=== PATIENT | female | born 1980 | race Caucasian/White ===

== ENCOUNTER 2025-04-25 09:35 | Emergency (ER) | payer MEDICARE, MEDICAID, SELFPAY ==
--- OUTSIDE RECORDS SUMMARY | 2025-04-24 06:06 | XMS_ITS | Continuity of Care Document ---
Author Organization Formerly [facility] [place] [address] Phone Care Team Providers Care Senior Project Coordinator Name Role Phone HELADIO KWAN MD Primary Care Provider HELADIO KWAN MD Attending Provider [phone] HELADIO KWAN MD Referring Provider Pancho Skaggs MD Emergency Provider Fadi Miller DNP Emergency Provider [phone] Care Teams Patient Care Team Team Status: Active Member Role/Relationship Status Dates HELADIO KWAN MD Primary Care Provider Active Visit Care Team Team Status: Active Member Role/Relationship Status Dates HELADIO KWAN MD Primary Care Provider Active Start: April 21, 2025 HELADIO KWAN MD Attending Provider Active St art: April 21, 2025 HELADIO KWAN MD Referring Provider Active St art: April 21, 2025 Visit Care Team Team Status: Inactive Member Role/Relationship Status Dates HELADIO KWAN MD Primary Care Provider Active Start: April 24, 2025 End: April 24, 2025 Pancho Skaggs MD Emergency Provider Active Start: April 24, 2025 End: April 24, 2025 Patient Care Team Team Status: Inactive Member Role/Relationship Status Dates HELADIO KWAN MD Primary Care Provider Active Start: April 24, 2025 End: April 24, 2025 Fadi Miller DNP Emergency Provider Active Sta rt: April 24, 2025 End: April 24, 2025 Chief Complaint and Reason for Visit Chief Complaint Admit Date MS April 21, 2025 10:06am BACK PX, LEG PX April 24, 2025 7:12am CAN'T KEEP FOOD DOWN April 24, 2025 11:39am Allergies, Adverse Reactions, Alerts Allergen Type Severity Reaction Last Updated Verified Status diphenhydramine HCl * Allergy Moderate Respiratory De cember 2024 7:39am Yes Active Iodinated Contrast Media Allergy Mild Itching April 24, 2025 7:39am Yes Active morphine Adverse Reaction Unknown Itching April 24, 2025 7:39am Yes Active Social History Smoking Status Status Start Date End Date Date of Observa tion Never smoked tobacco (finding) January 23, 2024 11:42pm Observation Status Observation Response Date of Response Suicide Risk Category Screening complete Marcello r 2024 7:36am Suicide Risk Category Screening complete Marcello r 2024 11:48am Living arrangement At home April 11:35pm Living Situation With family December 30 10:04pm ETOH Use Liquor June 25, 018 10:37am Psychiatric Depression January 23, 2024 10:42pm Anxiety January 23, 2024 10:42pm Social History Notes undefined December 10:04pm Legal Sex Female Sex Assigned At Female 1980 Status Not April 24, 2025 Not April 24, 025 Family History Relationship Condition Age at Onset Recorded Date/T sameera Unknown Family History Comment/Other? Unknown December 31, 2023 10:04pm Neurological History ?Multiple sclerosis Unknown January 23, 2024 10:42pm Respiratory?None Unknown January 032023 10:42pm Endocrine/Autoimmune ?Type 2 diabetes Unknown January 23, 2024 10:42pm Problems Active Problems Problem Diagnosis/Recorded Date Onset Date Stat us Abdominal pain October 07, 2013 9:00pm Unknown Acti ve Cough October 07, 2013 9:00pm Unknown Active Palpitations September 27, 2013 4:34pm Unknown Active Generalized aches and pains August 21, 2014 1:12am Un known Active Vomiting November 01, 2014 11:06pm Unknown Activ e Nausea vomiting and diarrhea May 19, 2019 3:49pm Unknown Active 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 April 16, 2020 11:31pm Unknown Active Acute flank pain July 26, 2019 11:06am Unknown Active SIRS due to non-infectious p rocess without acute organ dysfunction December 31, 2023 9:56pm Unknown Act george UTI (urinary tract infection) May 19, 2019 3:49p m Unknown Active Narcotic withdrawal June 28, 2018 5:20pm Unknown Active Major depression December 31, 2023 9:56pm Unknown Active Contusion, abdominal wall February 28, 2017 3:52am Un known Active Diabetes April 16, 2020 8:37pm Unknown A ctive Chronic pain April 16, 2020 11:31pm Unknown Active Abnormal liver function tests November 16, 2018 11:26pm Unknown Active DM2 (diabetes mellitus, type 2) December 31, 2023 9:56 pm Unknown Active Back pain January 06, 2018 10:18am Unknown Active Edema June 12, 2019 7:07pm Unknown Ac tive Rash and nonspecific skin eruption May 22, 2019 3:09pm Unknown Active Headache March 22, 2014 10:31pm Unknown Active Hyperglycemia November 11, 2016 10:54pm Unknown Act george Otitis media August 24, 2017 1:19am Unknown Acti ve Acute pain November 11, 2016 5:16pm Unknown Activ e Psoriasis June 09, 2019 3:00pm Unknown Ac tive Sinusitis August 24, 2017 1:19am Unknown Acti ve Benzodiazepine withdrawal December 31, 2023 9:08pm Unk nown Active Back pain affecting pregnanc y in first trimester September 10, 2014 8:38pm Unknown Active Allergic reaction February 22, 2014 2:39pm Unknown Active Biliary obstruction December 02, 2018 12:32am Unknown Active Left sided abdominal pain March 15, 2020 5:53pm U nknown Active Generalized pain September 01, 2018 1:46am Unknown Act george Multiple sclerosis November 11, 2016 5:16pm Unknown Active Left-sided weakness February 20, 2014 9:18pm Unknown Active Elevated lactic acid level July 26, 2019 11:06am Un known Active Abdominal pain February 28, 2017 3:52am Unknown Active Abdominal pain April 19, 2020 3:51pm Unknown Active Multiple sclerosis exacerbation February 20, 2014 9:1 8pm Unknown Active Pain crisis April 10, 2018 1:10pm Unknown Ac tive Pain crisis April 24, 2025 1:13pm Unknown A ctive Pneumonia June 12, 2019 7:07pm Unknown Ac tive Constipation February 28, 2017 3:52am Unknown Ac tive Vomiting August 21, 2014 1:12am Unknown Acti ve Contusion of hip, left January 30, 2018 5:26am Unk nown Active Dehydration July 27, 2017 6:18pm Unknown Acti ve Inactive/Resolved Problems Problem Diagnosis/Recorded Date Onset Date Stat us Pain of lower extremity June 08, 2020 3:30pm Unkn own Resolved Generalized muscle ache January 22, 2024 3:57am Un known Resolved Total body pain August 31, 2022 9:51pm Unknown R esolved Tachypnea July 05, 2020 2:28am Unknown Resol dieudonne Lightheadedness July 05, 2020 2:28am Unknown Re solved Cough July 05, 2020 2:28am Unknown Resol dieudonne Leukocytosis July 04, 2020 6:57pm Unknown Resol dieudonne Numbness and tingling of rig ht side of face May 29, 2023 5:23pm Unknown Resolved Tachycardia July 05, 2020 2:28am Unknown Resol dieudonne Pain, dental August 31, 2022 9:51pm Unknown Reso lved Tremor May 29, 2023 5:23pm Unknown Re solved Right arm numbness May 29, 2023 5:23pm Unknown Resolved History of multiple sclerosis May 29, 2023 5:23p m Unknown Resolved Medications Medication Status Dose Units Route Directions Qty Days Refills S tart Date Stop Date End Date Reason(s) Instructions Adherence Sertraline (Zoloft) 50 MG tablet Discont inued 200 TAB PO DAILY September 07, 2012 11:00p m Decem damari 2019 9:16a m Furosemide 20 MG tablet Discont inued 20 MG PO TWICE A DAY as needed for diuresis September 07, 2012 11:00p m November 01, 2014 8:19p m Alprazolam (Xanax) 0.5 MG tablet Discont inued 0.5 MG PO DAILY as needed for Anxiety September 07, 2012 11:00p m November 01, 2014 8:19p m Methadone 5 MG tablet Discont inued 10 MG PO Q8H September 07, 2012 11:00p m November 01, 2014 8:19p m Oxycodone 5 MG tablet Discont inued 10 MG PO FOUR TIMES DAILY as needed for Pain September 07, 2012 11:00p m October 04, 2015 4:07p m Ibuprofen 600 MG tablet Discont inued 600 MG PO Q6H as needed for Pain 30 0 September 07, 2012 11:00p m Augus t 2012 3:44a m Ondansetron 4 MG tablet,disi ntegrating Discont inued 4 MG PO Q6H as needed for Pain 10 0 September 07, 2012 11:00p m Septe mber 2012 7:41p m Doxycycline Hyclate 100 MG tablet Discont inued 100 MG PO TWICE A DAY 28 0 September 19, 2012 11:00p m Augus t 2012 3:44a m Glatiramer (Copaxone) 20 MG syringe Discont inued 20 MG SQ DAILY December 18, 2012 11:00p m Febru deb 2013 2:53p m Sennosides (Senokot) 8.6 MG tablet Discont inued 8.6 MG PO TWICE A DAY as needed for Constipatio n Octobe r 2012 11:00p m Octob er 2013 7:31p m Lipase-Prot ease-Amylas e (Pork) (Pancrelipa se 5,000 Dr Capsule) 1 EACH capsule,del ayed release(DR/ EC) Discont inued 6 CAP PO THREE TIMES A DAY Octobe r 2012 11:00p m August 26, 2013 7:59p m Natalizumab (Tysabri) 20 MG/1 ML solution Discont inued 300 MG IV ONCE August 25, 2013 11:00p m Augus t 2013 1:59p m Promethazin e 25 MG tablet Discont inued 25 MG PO Q6H as needed for Nausea / Vomiting 10 0 August 26, 2013 11:00p m Novem damari 2013 3:55p m Natalizumab (Tysabri) 20 MG/ML solution Discont inued Octobe r 2013 11:00p m November 01, 2014 8:19p m Diazepam 5 MG tablet Discont inued 2 TAB PO THREE TIMES A DAY as needed for Anxiety 2 0 Febobe r 2013 10:01p m Novem damari 2013 3:55p m 30 min prior to MRI Prednisone 20 MG tablet Discont inued 40 MG PO DAILY 5 0 Febobe r 2013 11:00p m Novem admari 2013 3:55p m 2X 20 MG TABS. QS Famotidine 20 MG tablet Discont inued 20 MG PO TWICE A DAY 10 0 Octobe r 2013 11:00p m Novem damari 2013 3:55p m Oxycodone-A cetaminophe n (Percocet 5-325 Mg Tablet) 1 EACH tablet Discont inued 1 EACH PO THREE TIMES A DAY as needed for Pain 15 0 September 10, 2014 8:36pm November 01, 2014 8:19p m Promethazin e 25 MG tablet Discont inued 25 MG PO Q6H as needed for Nausea / Vomiting 15 0 September 10, 2014 8:36pm November 01, 2014 8:19p m Pantoprazol e (Protonix) [address] for susp in packet Discont inued 40 MG DAILY October 02, 2015 11:00p m November 11, 2016 5:00p m Gabapentin 300 MG capsule Discont inued 300 MG PO THREE TIMES A DAY 30 0 October 02, 2015 11:00p m October 09, 2015 3:22p m Metoclopram vidhya Hcl 10 MG tablet Discont inued 10 MG PO Q6H as needed for Nausea / Vomiting 30 0 October 03, 2015 2:54pm November 11, 2016 5:00p m Oxycodone 5 MG tablet Discont inued 10 MG PO Q6H as needed for Pain 15 0 October 03, 2015 2:54pm Dece damari 2019 9:17a m Methadone 5 MG tablet Discont inued 10 MG TWICE A DAY October 03, 2015 11:00p m November 11, 2016 5:00p m Ondansetron 4 MG tablet,disi ntegrating Discont inued 4 MG TL Q6H as needed for Nausea / Vomiting 14 0 Octobe r 2016 11:00p m Febru deb 2017 11:09 am Lorazepam 0.5 MG tablet Active 0.5 MG PO Q6H as needed for Anxiety Februa ry 2017 12:00a m Unknown Methadone 10 MG tablet Discont inued 10 MG PO FOUR TIMES DAILY July 26, 2017 11:00p m Augus t 2023 7:55p m Ondansetron 4 MG tablet,disi ntegrating Discont inued 4 MG TL Q6H as needed for Nausea / Vomiting 14 0 August 24, 2017 1:30am July 05, 2020 2:20a m Amoxicillin -Pot Clavulanate 1 TAB tablet Discont inued 1 EACH PO Q12H 13 0 August 24, 2017 1:30am Augus t 2017 3:16p m Acetaminoph en 650 MG suppository Discont inued 650 MG PO Q6H as needed for Pain December 08, 2017 11:00p m Decem damari 2019 12:00 pm Cholecalcif cathleen (Vitamin D3) 500 UNIT/5 ML liquid Discont inued 2000 UNIT PO DAILY December 08, 2017 11:00p m Octob er 2017 11:12 am Methocarbam ol 500 MG tablet Discont inued 500 MG PO Q6H as needed for Spasms 25 0 2017 11:00p m Octob er 2017 11:12 am Vitamin D Cream Discont inued 1 EACH TOP DAILY Octobe r 2017 11:00p m Decem damari 2019 9:16a m Vitamin E Oil Discont inued 1 EACH TOP DAILY Octobe r 2017 11:00p m Dece damari 2019 9:16a m Methocarbam ol 500 MG tablet Discont inued 500 MG PO Q6H as needed for muscle spasm 20 0 damari 2017 5:24am Octob er 2017 11:12 am Promethazin e 25 MG tablet Discont inued 25 MG PO Q6H as needed for Nausea / Vomiting 10 0 2018 12:00a m August 19, 2019 1:38p m Lorazepam (Ativan) 1 MG tablet Discont inued 1 MG PO THREE TIMES A DAY as needed for Anxiety 10 0 2018 12:00a m August 19, 2019 1:37p m Promethazin e 25 MG tablet Discont inued 25 - 50 MG PO Q6H as needed for Nausea / Vomiting 10 0 November 16, 2018 11:00p m August 19, 2019 1:38p m 1-2 Tabs Hydroxyzine Pamoate 25 MG capsule Discont inued 25 - 50 MG PO Q6H as needed for Itching 20 0 December 02, 2018 12:31a m Decem damari 2019 12:01 pm Ondansetron 4 MG tablet,disi ntegrating Discont inued 4 MG TL Q6H as needed for Nausea / Vomiting 10 0 December 01, 2018 11:00p m Decem damari 2019 9:16a m Triamcinolo ne Acetonide 15 APPLIC/15 GM ointment Discont inued 1 GM TOP TWICE A DAY 3 0 Dece er 2018 12:00a m Decem damari 2019 9:16a m Promethazin e (Promethega n) 25 MG suppository Discont inued 25 MG NH Q6H as needed for Nausea / Vomiting 10 0 2019 12:00a m August 19, 2019 1:37p m Ondansetron 4 MG tablet,disi ntegrating Discont inued 4 MG TL Q6H as needed for Nausea / Vomiting 15 0 2019 12:00a m Decem damari 2019 9:16a m Hydroxyzine Hcl 25 MG tablet Discont inued 25 MG PO Q6H as needed for Itching 20 0 2019 3:47pm Decem 2019 9:17a m Sulfamethox azole-Trime thoprim 1 TAB tablet Discont inued 1 EACH PO TWICE A DAY 14 0 2019 12:00a m August 19, 2019 1:38p m Cephalexin (Keflex) 500 MG capsule Discont inued 500 MG PO Q6H 28 0 2019 12:00a m August 19, 2019 1:36p m Doxepin 10 MG capsule Discont inued 10 MG PO THREE TIMES A DAY as needed for Itching 14 0 2019 12:00a m August 19, 2019 1:36p m Triamcinolo ne Acetonide 15 APPLIC/15 GM ointment Discont inued 1 GM TOP TWICE A DAY 3 0 2019 12:00a m Decem damari 2019 12:00 pm Oxycodone-A cetaminophe n (Percocet 5-325 Mg Tablet) 1 EACH tablet Discont inued 1 - 2 EACH PO Q6H as needed for pain 7 0 2019 12:00a m Decem damari 2019 9:17a m Azithromyci n 250 MG tablet Discont inued 1 TAB PO DAILY 4 0 2019 12:00a m August 19, 2019 1:36p m Start tomorrow, first dose given in the emergency department. Albuterol Sulfate (Ventolin Hfa) 200 PUFFS/18 GM HFA aerosol inhaler Discont inued 1 - 2 PUFFS INH EVERY 4 HOURS as needed for Shortness Of Air/Wheezin g 1 0 ry 2019 12:00a m August 19, 2019 1:36p m Potassium Chloride 10 MEQ tablet extended release Discont inued 10 MEQ PO DAILY 3 0 2019 12:00a m August 19, 2019 1:37p m take anytime you take furosemide Furosemide 20 MG tablet Discont inued 20 MG PO DAILY as needed for edema 3 0 2019 7:28pm August 19, 2019 1:36p m Dexamethaso ne 4 MG tablet Discont inued 4 MG PO DAILY 7 0 July 25, 2019 11:00p m [facility] damari 2019 12:01 pm Oxycodone 5 MG tablet Discont inued 10 MG PO Q6H 14 0 November 12, 2019 [facility] damari 2019 9:44p m pain Ondansetron 4 MG tablet,disi ntegrating Discont inued 4 MG TL Q6H as needed for Nausea / Vomiting 10 0 Novemb er 2019 12:00a m Dece damari 2019 9:16a m Metformin 500 MG tablet Active 1000 MG PO TWICE A DAY Dece er 2019 12:00a m Unknown Sertraline 50 MG tablet Active 200 MG PO DAILY Decemb er 2019 12:00a m Unknown Risankizuma b-Rzaa (Skyrizi) 150 MG/1.66 ML syringe kit Active 150 MG IJ .[id number] Dece er 2019 12:00a m Unknown Oxycodone 5 MG tablet Active 10 MG PO Q4H as needed for Pain Dece er 2019 9:44pm Unknown Insulin Glargine (Lantus Solostar U-100 Insulin) 100 UNIT/ML insulin pen Active 16 UNIT SQ EVERY EVENING Dece er 2019 12:00a m Unknown Potassium Chloride 10 MEQ tablet extended release Discont inued 10 MEQ PO DAILY 3 0 2020 12:00a m July 05, 2020 2:20a m Furosemide 20 MG tablet Discont inued 20 MG PO DAILY 3 0 2020 12:00a m July 05, 2020 2:20a m Azithromyci n 250 MG tablet Discont inued 250 MG PO DAILY BEFORE A MEAL 6 5 0 July 05, 2020 12:00a m Decem damari 2020 1:39p m 500 MG ON DAY 1, THEN 250 MG DAILY X 4 DAYS FOR A TOTAL OF 5 DAYS Hydromorpho ne 2 MG tablet Discont inued 2 MG PO Q4H as needed for chest pain 14 0 October 03, 2021 ry 2022 2:22p m Azithromyci n 250 MG tablet Discont inued 250 MG PO DAILY 4 0 October 02, 2021 11:00p m Janua ry 2022 2:22p m Amoxicillin -Pot Clavulanate 1 TAB tablet Discont inued 1 TAB PO Q12H 20 0 October 02, 2021 11:00p m Janua ry 2022 2:22p m Celecoxib (Celebrex) 200 MG capsule Discont inued 200 MG PO August 30, 2022 11:00p m Janua ry 2023 7:44p m Hydromorpho ne (Dilaudid) 4 MG tablet Discont inued 4 MG PO Q4H as needed for pain 15 0 y 2023us t 2023 7:55p m Methadone 10 MG tablet Active 1 TAB PO As Directed Augu st 2023 11:00p m METHADONE 10MG TABS #35 TAKE 1 TABLET BY MOUTH FIVE TIMES A DAY. -FILLED AND PICKED UP AT [place], [place] Unknown Ondansetron Hcl 4 mg tablet Active 4 MG PO Q8H as needed for nausea and vomiting 10 0 Decemb er 2024 12:00a m Chronic pain Other chronic pain Unknown Oxycodone 10 mg tablet Active 10 MG PO Q4H as needed for pain 20 0 Decemb er 2024 Chronic pain Other chronic pain Unknown Immunizations Immunization Event Date Not Given Reason Dose Number [employer] Lot Number Reason(s) Given Vaccine Information Statement (VIS) Detail Administration Location Diptheria-Tet anus-Pertussi s Ped 1980 Diptheria-Tet anus-Pertussi s Ped Decemb er 1980 Diptheria-Tet anus-Pertussi s Ped October 08, 1983 Diptheria-Tet anus-Pertussi s Ped December 30, 1984 Diptheria-Tet anus-Pertussi s Ped September 08, 1989 Measles-Mumps -Rubella October 15, 1983 Measles-Mumps -Rubella October 20, 1994 Measles-Mumps -Rubella Novemb er , 2014 Measles-Mumps -Rubella Novemb er , 2015 Tetanus-Dipth eria-Pertussi s Octobe r 2014 Tetanus-Dipth eria-Pertussi s Octobe r 2015 Relevant Diagnostic Tests and/or Laboratory Data Laboratory Results Test Collection Date/Time Result Date/Time Result Interpretation Reference Range Result Comment Performing Site White Blood Count February 07, 2025 8:05am February 07, 2025 8:24am 6.3 10*3/uL 4.8-10.8 [facility] [id number] [address] [facility] [id number] White Blood Count April 24, 2025 1:08pm April 24, 2025 1:21pm 12.4 10*3/uL above high threshold 4.8-10.8 [facility] [id number] [address] [facility] [address] Red Blood Count February 07, 2025 8:05am February 07, 2025 8:24am 4.20 10*6/uL 4.20-5.40 [facility] [id number] [address] [facility] [address] Red Blood Count April 24, 2025 1:08pm April 24, 2025 1:21pm 4.60 10*6/uL 4.20-5.40 [facility] [id number] [address] [facility] [address] Hemoglobi n February 07, 2025 8:05am February 07, 2025 8:24am 10.6 g/dL below low threshold 12.0-16.0 [facility] [id number] [address] [facility] [address] Hemoglobi n April 24, 2025 1:08pm April 24, 2025 1:21pm 10.8 g/dL below low threshold 12.0-16.0 [facility] [id number] [address] [facility] [address] Hematocri t February 07, 2025 8:05am February 07, 2025 8:24am 33.0 % below low threshold 37.0-47.0 [facility] [id number] [address] [facility] [address] Hematocri t April 24, 2025 1:08pm April 24, 2025 1:21pm 35.0 % below low threshold 37.0-47.0 [facility] [id number] [address] [facility] [address] Mean Corpuscul ar Volume February 07, 2025 8:05am February 07, 2025 8:24am 78.6 fL below low threshold 81.0-99.0 [facility] [id number] [address] [facility] [address] Mean Corpuscul ar Volume April 24, 2025 1:08pm April 24, 2025 1:21pm 76.1 fL below low threshold 81.0-99.0 [facility] [id number] [address] [facility] [address] Mean Corpuscul ar Hemoglobi n February 07, 2025 8:05am February 07, 2025 8:24am 25.2 pg below low threshold 27.0-31.0 [facility] [id number] [address] [facility] [address] Mean Corpuscul ar Hemoglobi n April 24, 2025 1:08pm April 24, 2025 1:21pm 23.5 pg below low threshold 27.0-31.0 [facility] [id number] [address] [facility] [address] Mean Corpuscul ar Hemoglobi n Concent February 07, 2025 8:05am February 07, 2025 8:24am 32.1 g/dL 32.0-36.0 [facility] [id number] [address] [facility] [address] Mean Corpuscul ar Hemoglobi n Concent April 24, 2025 1:08pm April 24, 2025 1:21pm 30.9 g/dL below low threshold 32.0-36.0 [facility] [id number] [address] [facility] [address] Red Cell Distribut ion Width February 07, 2025 8:05am February 07, 2025 8:24am 14.9 % 12.0-15.0 [facility] [id number] [address] [facility] [address] Red Cell Distribut ion Width April 24, 2025 1:08pm April 24, 2025 1:21pm 16.7 % above high threshold 12.0-15.0 [facility] [id number] [address] [facility] [address] Platelet Count February 07, 2025 8:05am February 07, 2025 8:24am 232 10*3/uL 130-450 MA[facility] [id number] [address] [facility] [address] Platelet Count April 24, 2025 1:08pm April 24, 2025 1:21pm 304 10*3/uL 130-450 MA[facility] [id number] [address] [facility] [address] Mean Platelet Volume February 07, 2025 8:05am February 07, 2025 8:24am 9.1 fL 7.9-10.8 MA[facility] [id number] [address] [facility] [address] Mean Platelet Volume April 24, 2025 1:08pm April 24, 2025 1:21pm 9.2 fL 7.9-10.8 [facility] [id number] [address] [facility] [address] Neutrophi ls # (Auto) February 07, 2025 8:05am February 07, 2025 8:24am 3.9 10*3/uL 1.5-6.6 [facility] [id number] [address] [facility] [address] Neutrophi ls # (Auto) April 24, 2025 1:08pm April 24, 2025 1:21pm 8.0 10*3/uL above high threshold 1.5-6.6 [facility] [id number] [address] [facility] [address] Lymphocyt es # (Auto) February 07, 2025 8:05am February 07, 2025 8:24am 1.8 10*3/uL 1.5-3.5 [facility] [id number] [address] [facility] [address] Lymphocyt es # (Auto) April 24, 2025 1:08pm April 24, 2025 1:21pm 3.5 10*3/uL 1.5-3.5 [facility] [id number] [address] [facility] [address] Monocytes # (Auto) February 07, 2025 8:05am February 07, 2025 8:24am 0.4 10*3/uL 0.0-1.0 [facility] [id number] [address] [facility] [address] Monocytes # (Auto) April 24, 2025 1:08pm April 24, 2025 1:21pm 0.8 10*3/uL 0.0-1.0 [facility] [id number] [address] [facility] [address] Eosinophi ls # (Auto) February 07, 2025 8:05am February 07, 2025 8:24am 0.1 10*3/uL 0.0-0.7 MA[facility] [id number] [address] [facility] [address] Eosinophi ls # (Auto) April 24, 2025 1:08pm April 24, 2025 1:21pm 0.0 10*3/uL 0.0-0.7 MA[facility] [id number] [address] [facility] [address] Basophils # (Auto) February 07, 2025 8:05am February 07, 2025 8:24am 0.0 10*3/uL 0.0-0.1 MA[facility] [id number] [address] [facility] [address] Basophils # (Auto) April 24, 2025 1:08pm April 24, 2025 1:21pm 0.1 10*3/uL 0.0-0.1 MA[facility] [id number] [address] [facility] [address] Nucleated Red Blood Cells % February 07, 2025 8:05am February 07, 2025 8:24am 0.0 /100{WBC } MAIN [facility] [id number] [address] [facility] [address] Nucleated Red Blood Cells % April 24, 2025 1:08pm April 24, 2025 1:21pm 0.2 /100{WBC } MAIN [facility] [id number] [address] [facility] [address] Nucleated RBC Absolute Count (auto) February 07, 2025 8:05am February 07, 2025 8:24am 0.00 10*3/uL MA[facility] [id number] [address] [facility] [address] Nucleated RBC Absolute Count (auto) April 24, 2025 1:08pm April 24, 2025 1:21pm 0.03 10*3/uL MA[facility] [id number] [address] [facility] [address] Sodium Level February 07, 2025 8:05am February 07, 2025 8:35am 137 mmol/L 135-145 MA[facility] [id number] [address] [facility] [address] Sodium Level April 24, 2025 1:08pm April 24, 2025 1:31pm 137 mmol/L 135-145 MA[facility] [id number] [address] [facility] [address] Potassium Level February 07, 2025 8:05am February 07, 2025 8:35am 4.0 mmol/L 3.5-4.5 As of November 2022 testing method has changed, this may include reference ranges. MAIN [facility] [id number] [address] [facility] [address] Potassium Level April 24, 2025 1:08pm April 24, 2025 1:31pm 3.7 mmol/L 3.5-4.5 As of November 2022 testing method has changed, this may include reference ranges. MAIN LAB [id number] [address] [facility] [address] Chloride Level February 07, 2025 8:05am February 07, 2025 8:35am 105 mmol/L 101-111 As of November 2022 testing method has changed, this may include reference ranges. MAIN LAB [id number] [address] [facility] [address] Chloride Level April 24, 2025 1:08pm April 24, 2025 1:31pm 102 mmol/L 101-111 As of November 2022 testing method has changed, this may include reference ranges. MAIN [facility] [id number] [address] [facility] [address] Carbon Dioxide Level February 07, 2025 8:05am February 07, 2025 8:35am 27 mmol/L 21-32 As of November 2022 testing method has changed, this may include reference ranges. MAIN [facility] [id number] [address] [facility] [address] Carbon Dioxide Level April 24, 2025 1:08pm April 24, 2025 1:31pm 26 mmol/L 21-32 As of November 2022 testing method has changed, this may include reference ranges. MAIN LAB [id number] [address] [facility] [address] Anion Gap February 07, 2025 8:05am February 07, 2025 8:35am 5.0 below low threshold 6-13 MAIN [facility] [id number] [address] [facility] [address] Anion Gap April 24, 2025 1:08pm April 24, 2025 1:31pm 9.0 6-13 MAIN LAB [id number] [address] [facility] [address] Blood Urea Nitrogen February 07, 2025 8:05am February 07, 2025 8:35am 15 mg/dL 6-20 As of November 2022 testing method has changed, this may include reference ranges. MAIN LAB [id number] [address] [facility] [address] Blood Urea Nitrogen April 24, 2025 1:08pm April 24, 2025 1:31pm 13 mg/dL 6-20 As of November 2022 testing method has changed, this may include reference ranges. MAIN LAB [id number] [address] [facility] [address] Creatinin e February 07, 2025 8:05am February 07, 2025 8:35am 0.7 mg/dL 0.6-1.3 As of November 2022 testing method has changed, this may include reference ranges. MAIN LAB [id number] [address] [facility] [address] Creatinin e April 24, 2025 1:08pm April 24, 2025 1:31pm 0.6 mg/dL 0.6-1.3 As of November 2022 testing method has changed, this may include reference ranges. MAIN LAB [id number] [address] [facility] [address] Estimated GFR (MDRD) February 07, 2025 8:05am February 07, 2025 8:35am 92 >89 The IDMS-tracea ble MDRD Study Equation has been validated extensively in and populations between the ages of 18 and 70 with impaired kidney function (eGFR < 60 mL/min/1.73 m2) and has shown good performance for patients with all common causes of kidney disease. Although this equation has not been validated for patients older than 70, an MDRD-derive d eGFR may still be a useful tool for providers caring for patients older than 70.Referenc es: http://www. [facility]. ov/lab-eval uation/gfr/ creatinine- standardiza tion, last updated July 2011. MAIN LAB [id number] [address] [facility] [address] Estimated GFR (MDRD) April 24, 2025 1:08pm April 24, 2025 1:31pm 110 >89 The IDTN-tracea ble MDRD Study Equation has been validated extensively in and populations between the ages of 18 and 70 with impaired kidney function (eGFR < 60 mL/min/1.73 m2) and has shown good performance for patients with all common causes of kidney disease. Although this equation has not been validated for patients older than 70, an MDRD-derive d eGFR may still be a useful tool for providers caring for patients older than 70.Referenc es: http://www. n[facility]dep[facility]. ov/lab-eval uation/gfr/ creatinine- standardiza tion, last updated July 2011. MAIN LAB [id number] [address] [facility] [address] Glucose Level February 07, 2025 8:05am February 07, 2025 8:35am 117 mg/dL above high threshold 74-104 As of November 2022 testing method has changed, this may include reference ranges. MAIN LAB [id number] [address] [facility] [address] Glucose Level April 24, 2025 1:08pm April 24, 2025 1:31pm 149 mg/dL above high threshold 74-104 As of November 2022 testing method has changed, this may include reference ranges. MAIN LAB [id number] [address] [facility] [address] Calcium Level February 07, 2025 8:05am February 07, 2025 8:35am 8.9 mg/dL 8.5-10.3 As of November 2022 testing method has changed, this may include reference ranges. MAIN LAB [id number] [address] [facility] [address] Calcium Level April 24, 2025 1:08pm April 24, 2025 1:31pm 9.3 mg/dL 8.5-10.3 As of November 2022 testing method has changed, this may include reference ranges. MAIN LAB [id number] [address] [facility] [address] Total Bilirubin February 07, 2025 8:05am February 07, 2025 8:35am 0.7 mg/dL 0.2-1.0 As of November 2022 testing method has changed, this may include reference ranges. MAIN LAB [id number] [address] [facility] [address] Total Bilirubin April 24, 2025 1:08pm April 24, 2025 1:31pm 1.2 mg/dL above high threshold 0.2-1.0 As of November 2022 testing method has changed, this may include reference ranges. MAIN LAB [id number] [address] [facility] [address] Aspartate Amino Transf (AST/SGOT ) February 07, 2025 8:05am February 07, 2025 8:35am 15 [iU]/L 10-42 As of November 2022 testing method has changed, this may include reference ranges. MAIN LAB [id number] [address] [facility] [address] Aspartate Amino Transf (AST/SGOT ) April 24, 2025 1:08pm April 24, 2025 1:31pm 12 [iU]/L 10-42 As of November 2022 testing method has changed, this may include reference ranges. MAIN LAB [id number] [address] [facility] [address] Alanine Aminotran sferase (ALT/SGPT ) February 07, 2025 8:05am February 07, 2025 8:35am 11 [iU]/L 10-60 As of November 2022 testing method has changed, this may include reference ranges. MAIN LAB [id number] [address] [facility] [address] Alanine Aminotran sferase (ALT/SGPT ) April 24, 2025 1:08pm April 24, 2025 1:31pm 11 [iU]/L 10-60 As of November 2022 testing method has changed, this may include reference ranges. MAIN LAB [id number] [address] [facility] [address] Alkaline Phosphata se February 07, 2025 8:05am February 07, 2025 8:35am 64 [iU]/L 42-121 As of November 2022 testing method has changed, this may include reference ranges. MAIN LAB [id number] [address] [facility] [address] Alkaline Phosphata se April 24, 2025 1:08pm April 24, 2025 1:31pm 82 [iU]/L 42-121 As of November 2022 testing method has changed, this may include reference ranges. MAIN LAB [id number] [address] [facility] [address] Total Protein February 07, 2025 8:05am February 07, 2025 8:35am 7.3 g/dL 6.4-8.9 As of November 2022 testing method has changed, this may include reference ranges. MAIN LAB [id number] [address] [facility] [address] Total Protein April 24, 2025 1:08pm April 24, 2025 1:31pm 8.0 g/dL 6.4-8.9 As of November 2022 testing method has changed, this may include reference ranges. MAIN LAB [id number] [address] [facility] [address] Albumin February 07, 2025 8:05am February 07, 2025 8:35am 4.2 g/dL 3.2-5.5 As of November 2022 testing method has changed, this may include reference ranges. MAIN LAB [id number] [address] [facility] [address] Albumin April 24, 2025 1:08pm April 24, 2025 1:31pm 4.5 g/dL 3.2-5.5 As of November 2022 testing method has changed, this may include reference ranges. MAIN LAB [id number] [address] [facility] [address] Globulin February 07, 2025 8:05am February 07, 2025 8:35am 3.1 g/dL 2.1-4.2 MAIN LAB [id number] [address] [facility] [address] Globulin April 24, 2025 1:08pm April 24, 2025 1:31pm 3.5 g/dL 2.1-4.2 MAIN LAB [id number] [address] [facility] [address] Albumin/G lobulin Ratio February 07, 2025 8:05am February 07, 2025 8:35am 1.4 1.0-2.2 MAIN LAB [id number] [address] [facility] [address] Albumin/G lobulin Ratio April 24, 2025 1:08pm April 24, 2025 1:31pm 1.3 1.0-2.2 MAIN LAB [id number] [address] [facility] [address] Lipase April 24, 2025 1:08pm April 24, 2025 1:54pm < 10 [iU]/L below low threshold 11-82 As of November 2022 testing method has changed, this may include reference ranges. MAIN LAB [id number] [address] [facility] [address] Miscellan eous Test February 07, 2025 8:05am February 13, 2025 8:09am COMMENT . Test Ordered: [id number] ROGERS Virus DNA,PCR (Whole Blood)ROGERS Virus DNA,PCR (Whole Blood) Negative BN Reference Range: NegativeNo JCV DNA detectedThi s test was developed and its performance characteris ticsdetermi christopher by [facility]. It has not been cleared or approvedby the Food and Drug Administrat ion. The FDA hasdetermin ed that such clearance or approval is notnecessar y.Performed at: [facility] [id number] b Director: Denise Mora MD, Phone: [phone] erformed at: [address] [id number] b Director: Gt Vu MD, Phone: [phone] [facility] Vital Signs Vital Reading Result Reference Range Collection Date/Time Height 65 [in_i] March 07 024 10:58am Weight 78.70 kg March 24, 2025 9:22am Body Temperature 36.6 Teresa 36.5-37.9 April 212024 10:11am Heart Rate 91 /min 60-100 April 21, 2025 10:11am Respiratory rate 16 /min 12-24 April 212024 10:11am Oxygen saturation by Pulse oximetry 100 % 92-100 April 21, 2025 10:11am BP Systolic 146 mm[Hg] 90-130 April 21, 2025 10:11am BP Diastolic 93 mm[Hg] 60-90 April 21, 2025 10:11am BMI (Body Mass Index) 29.3 kg/m2 Sept2023 12:49am Height 65 [in_i] April 24, 2025 7:36am Weight 76.65 kg April 24, 2025 7:36am Body Temperature 36.6 Teresa 36.5-37.9 April 242024 7:57am Heart Rate 88 /min 60-100 April 24, 2025 7:57am Respiratory rate 18 /min 12-April 242024 7:57am Oxygen saturation by Pulse oximetry 98 % 92-100 April 24, 2025 7:57am BP Systolic 146 mm[Hg] 90-130 April 24, 2025 7:57am BP Diastolic 88 mm[Hg] 60-90 April 24, 2025 7:57am BMI (Body Mass Index) 28.1 kg/m2 [facility] 2024 7:36am Height 65 [in_i] April 24, 2025 11:48am Weight 75.29 kg April 24, 2025 11:48am Body Temperature 36 Teresa 36.5-37.9 April 242024 11:48am Heart Rate 74 /min 60-100 April 24, 2025 1:40pm Respiratory rate 20 /min -April 242024 1:40pm Oxygen saturation by Pulse oximetry 98 % 92-100 April 24, 2025 1:40pm BP Systolic 159 mm[Hg] 90-130 April 24, 2025 1:40pm BP Diastolic 92 mm[Hg] 60-90 April 24, 2025 1:40pm BMI (Body Mass Index) 27.6 kg/m2 [facility] 2024 11:48am Advance Directives Advance Directive Response Recorded Date/ Time Advance Directives on file? No 2023 11:10pm Advance Directives No March 8:21pm Advance Directives Information Provided No April 07, 2022 2:56pm Living Will No April 02, 2 014 8:21pm Power of Patient Assistant No April 02, 2014 8:21pm POLST Status Full Code January 23, 2024 10:42pm Advance Directives On File No 2013 8:21pm Insurance Providers Guarantor MARIA ALEJANDRA SCHMID Address [address] [facility] [address] Contact Info. Home Phone: Coverage Status Update:2024 Payer Group Member ID Coverage Type Subscriber Relationship to Subscriber Effective Date Expiration Date Deleted 1500 Insurances [employer]IP [employer]/QMB [id number] null MARIA ALEJANDRA SCHMID Id: [id number] Self Deleted Clinic Insur [id number] null MARIA ALEJANDRA SCHMID Id: [id number] Self Medicaid Id: [id number] null MARIA ALEJANDRA SCHMID Id: [id number] [address] [facility] [address] Home Phone: Email: DECLINED Self 2022 MEDICAID AMBULANCE DUAL COMPLETE Id: [id number] jacque SCHMID Id: [id number] [address] [facility] [address] Home Phone: Email: DECLINED Self Encounters Encounter Location(s) Arrival/Admit Date Discharge/Departure Date Discharge/Departure Disposition Provider(s) Registered Recurring -MAC Infusion April 21, 2025 10:06am Heladio Kwan Departed Emergency -Emergency Department April 24, 2025 7:12am April 24, 2025 7:58am Discharged to home care or self care (routine discharge) Departed Emergency -Emergency Department April 24, 2025 11:39am April 24, 2025 1:45pm Discharged to home care or self care (routine discharge) Functional Status Observation Response Date Recorded Activity Walks occasionally January 02, 2024 6:55am Mental Status Observation Response Date Recorded Neurological WDL Yes April 24, 2025 7:39am Neurological WDL No April 24, 2025 12:36pm Oriented To Person April 24 025 12:36pm Place April 24 12:36pm Time April 24 12:36pm Cognitive/Mental Status Assessments Plan of Treatment Future Tests Future scheduled test information is unavailable Pending Tests Test Name Ordered Date Scheduled Date CBC - COMP BLD CT W/AUTO DIFF March 07, 2024 11:02am CBC - COMP BLD CT W/AUTO DIFF March 07, 2024 11:02am CBC - COMP BLD CT W/AUTO DIFF March 07, 2024 11:02am CBC - COMP BLD CT W/AUTO DIFF March 07, 2024 11:02am CBC - COMP BLD CT W/AUTO DIFF April 10, 2025 1:42pm 7 Days COMPREHENSIVE METABOLIC PANEL March 07, 2024 11:02am COMPREHENSIVE METABOLIC PANEL March 07, 2024 11:02am COMPREHENSIVE METABOLIC PANEL March 07, 2024 11:02am COMPREHENSIVE METABOLIC PANEL March 07, 2024 11:02am COMPREHENSIVE METABOLIC PANEL April 10, 2025 1:42pm 7 Days Future Visits Future appointment information is unavailable Future Procedures Procedure Name Ordered Date Scheduled Date MISC LAB ORDER March 07, 2024 11:02am MISC LAB ORDER March 07, 2024 11:02am MISC LAB ORDER March 07, 2024 11:02am MISC LAB ORDER April 10, 2025 1:42pm 7 Days Future Medications Future medication information is unavailable Patient Instructions Instruction Admit Date ED Chronic Pain April 24, 2025 7:12am Managing Chronic Pain April 24 11:39am Hospital Discharge Instructions Additional Instructions I have spoke with the pharmacist and unfortunately at this point in time you are unable to give you a medication refill due to the fact that you just had a refill earlier In April With 220 pills. We have given you some IV pain medication here in the emergency department to help with your pain in the meantime but I would encourage you to Follow-up with your primary care provider about this conundrum that you are in.
[2025-04-25 10:02] VITALS: BP 127/82; PULSE 107; RESP 14; TEMP 37; O2SAT 97; BMI 27.8
[2025-04-25 11:19] VITALS: BP 128/78; PULSE 107; RESP 20; O2SAT 99
--- NOTE | 2025-04-25 11:59 | ED.BACK ---
HPI - Back Pain/Injury <Demian Boyer PA-C - Last Filed: 04/25/25 14:23> General Chief Complaint: Back Pain/Injury Stated Complaint: Bad MS flareup Time Seen by Provider: 04/25/25 11:15 Source: patient History of Present Illness HPI Narrative: 44-year-old female with past medical history multiple sclerosis, type 2 diabetes presents to the ED with all-over pain from the progressive multiple sclerosis. Patient has run out of pain medications for the last 4 days. Patient usually takes 20 mg of oxycodone every 4 hours as needed. Patient states that her care was terminated at her PCP's office, since she missed 2 appointments. PCP's name is Dr. Campbell in [place]. No fever, chills, chest pain, shortness of breath. No new trauma. Patient has several lesions along her spine and in the brain. Patient gets a infusion of Tysabri at the [facility] in [place]. Last infusion was last week. However this infusion was delayed. Patient endorses nausea. Related Data Home Medications ?Medication ?Instructions ?Recorded ?Confirmed Vitamins (PRENAVITE) 1 tab PO QDAY #0 tabs 02/26/16 acetaminophen 500 mg tablet 500 mg PO Q4HP PRN ##0 02/26/16 (Tylenol Extra Strength) Previous Rx's ?Medication ?Instructions ?Recorded cephalexin 500 mg capsule (Keflex) 500 mg PO BID 3 days #0 caps 02/26/16 methocarbamol 750 mg tablet 750 mg PO QIDP PRN #40 tabs 08/05/16 (Robaxin-750) Allergies Allergy/AdvReac Type Severity Reaction Status Date / Time morphine (MORPHINE) Allergy Severe n/v Verified 04/25/25 10:02 ,difficulty breathing diphenhydramine (From Allergy Intermediate anxious Verified 04/25/25 10:02 BENADRYL) Review of Systems <Demian Boyer PA-C - Last Filed: 04/25/25 14:23> Constitutional Constitutional: Denies chills, Denies fatigue, Denies fever(s), Denies frequent falls, Denies lethargy and Denies weakness Comments: All-over pain Eyes Eyes: Denies change in vision, Denies eye discharge, Denies irritation and Denies loss of vision ENT Ears, Nose, Mouth, and Throat: Denies change in voice, Denies dizziness, Denies neck pain, Denies sore throat and Denies throat swelling Cardiovascular Cardiovascular: Denies chest pain, Denies irregular heart rhythm, Denies lightheadedness, Denies palpitations, Denies dyspnea, Denies dyspnea on exertion and Denies orthopnea Respiratory Respiratory: Denies cough, Denies dyspnea, Denies dyspnea on exertion and Denies wheezing Gastrointestinal Gastrointestinal: Denies abdominal pain, Denies change in bowel habits, Denies diarrhea, Reports nausea and Denies vomiting Musculoskeletal Musculoskeletal: Denies neck pain and Denies numbness Integumentary/Breasts Skin/Breast: Denies pruritus, Denies erythema, Denies rash and Denies wounds Neurologic Neurologic: Denies behavioral changes, Denies confusion, Denies dizziness, Denies frequent falls, Denies loss of vision, Denies numbness and Denies weakness Psychiatric Psychiatric: Denies anxiety, Denies behavioral changes, Denies confusion, Denies depression, Denies homicidal ideation and Denies suicidal ideation Endocrine Endocrine: Denies fatigue, Denies flushing and Denies palpitations Hematologic/Lymphatic Hematologic/Lymphatic: Denies easy bruising Allergic/Immunologic Allergic/Immunologic: Denies urticaria, Denies throat swelling and Denies wheezing Exam <Demian Boyer PA-C - Last Filed: 04/25/25 14:23> Narrative Exam Narrative: Const General:?cooperative, healthy appearing and comfortable [facility] Head:?normal to inspection Ears:?hearing grossly normal bilaterally Nose:?external nose normal Face and sinus:?normal facial exam and sinuses nontender Mouth:?oral mucosae normal Throat:?posterior oropharynx normal Eyes General:?appearance normal, both eyes and all related structures Neck Neck:?normal visual inspection and no lymphadenopathy noted Resp Effort & Inspection:?normal respiratory effort Auscultation:?clear to auscultation bilaterally Cardio Rate:?regular rate Rhythm:?regular rhythm Neuro General:?patient alert, patient awake and patient oriented x3 Initial Vital Signs Initial Vital Signs: Vital Signs Temperature 98.6 F 04/25/25 10:02 Pulse Rate 107 H 04/25/25 10:02 Respiratory Rate 14 04/25/25 10:02 Blood Pressure 127/82 04/25/25 10:02 Pulse Oximetry 97 04/25/25 10:02 Oxygen Delivery Method Room Air 04/25/25 10:02 <Lidia Santoyo DO - Last Filed: 04/26/25 09:55> Initial Vital Signs Initial Vital Signs: Vital Signs Temperature 98.6 F 04/25/25 10:02 Pulse Rate 107 H 04/25/25 10:02 Respiratory Rate 14 04/25/25 10:02 Blood Pressure 127/82 04/25/25 10:02 Pulse Oximetry 97 04/25/25 10:02 Oxygen Delivery Method Room Air 04/25/25 10:02 Course <Demian Boyer PA-C - Last Filed: 04/25/25 14:23> Orders Ordered: Discontinued Medications Hydromorphone HCl (Hydromorphone 1 Mg/Ml Syringe) 1 mg IV NOW ONE Stop: 04/25/25 11:56 Last Admin: 04/25/25 12:14 Dose: 1 mg Documented By: CICI Hydromorphone HCl (Hydromorphone 1 Mg/Ml Syringe) 1 mg IV NOW ONE Stop: 04/25/25 14:16 Last Admin: 04/25/25 14:29 Dose: 1 mg Documented By: CICI Sodium Chloride (Normal Saline 0.9%) 1,000 mls @ 1,000 mls/hr IV BOLUS ONE Stop: 04/25/25 12:54 Last Infusion: 04/25/25 14:01 Dose: Infused Documented By: Admin: 04/25/25 12:14 Dose: 1,000 mls/hr Documented By: CICI Ondansetron HCl (Ondansetron 4 Mg/2 Ml Inj) 4 mg IV NOW ONE Stop: 04/25/25 11:57 Last Admin: 04/25/25 12:14 Dose: 4 mg Documented By: CICI Vital Signs Vital signs: Vital Signs - 8 hr 04/25/25 10:02 04/25/25 11:19 Temperature 98.6 F Pulse Rate 107 H 107 H Respiratory Rate 14 20 Blood Pressure 127/82 128/78 Pulse Oximetry 97 99 Oxygen Delivery Method Room Air Room Air <Lidia Santoyo DO - Last Filed: 04/26/25 09:55> Orders Ordered: Discontinued Medications Hydromorphone HCl (Hydromorphone 1 Mg/Ml Syringe) 1 mg IV NOW ONE Stop: 04/25/25 11:56 Last Admin: 04/25/25 12:14 Dose: 1 mg Documented By: CICI Hydromorphone HCl (Hydromorphone 1 Mg/Ml Syringe) 1 mg IV NOW ONE Stop: 04/25/25 14:16 Last Admin: 04/25/25 14:29 Dose: 1 mg Documented By: CICI Sodium Chloride (Normal Saline 0.9%) 1,000 mls @ 1,000 mls/hr IV BOLUS ONE Stop: 04/25/25 12:54 Last Infusion: 04/25/25 14:01 Dose: Infused Documented By: Admin: 04/25/25 12:14 Dose: 1,000 mls/hr Documented By: CICI Ondansetron HCl (Ondansetron 4 Mg/2 Ml Inj) 4 mg IV NOW ONE Stop: 04/25/25 11:57 Last Admin: 04/25/25 12:14 Dose: 4 mg Documented By: CICI Vital Signs Vital signs: Vital Signs - 8 hr 04/25/25 10:02 04/25/25 11:19 Temperature 98.6 F Pulse Rate 107 H 107 H Respiratory Rate 14 20 Blood Pressure 127/82 128/78 Pulse Oximetry 97 99 Oxygen Delivery Method Room Air Room Air MDM - Back Pain/Injury <Demian Boyer PA-C - Last Filed: 04/25/25 14:23> MDM Narrative Medical decision making narrative: 44-year-old female with past medical history multiple sclerosis, type 2 diabetes presents to the ED with all-over pain from the progressive multiple sclerosis. Patient is stable, without chest pain or shortness of breath. Patient is tachycardic to 107 but vitals otherwise normal. The goal today will be to control pain and nausea, consult with social work to establish a new PCP for the patient. Will reassess. Our elementary school social worker learned that patient had been seen in in the [facility] ED twice yesterday for the same complaint of pain and nausea. We requested records from [facility], learned that they checked patient's medication history and that Diana confirmed that she received 220 pills of oxycodone about 2 weeks ago, which should last her past the new your per her providers prescription instructions. Patient was denied any additional pain medications yesterday at [facility]. Today, patient was given 2 doses of Dilaudid via her port. Our elementary school social worker was able to secure a new PCP for the patient and her 1st appointment will be on 05/18/[address] Marx. Discussed this with patient, explained to patient that we are unable to prescribe anymore narcotic pain medication today. Recommend follow-up with PCP as scheduled. ED return precautions were discussed with patient. She verbalized understanding. Medical records reviewed: Yes Discharge Plan Departure Patient Disposition: Home Clinical Impression: Acute pain Instructions: DI for Back Strain or Sprain Activity Restrictions/Additional Instructions: You were evaluated in the emergency department today for breakthrough pain from multiple sclerosis. You were given 2 doses of Dilaudid for pain relief. You have also been set up with a new PCP Dr. Marx, with your appointment on 05/18/2025. We are unable to fill any prescriptions today for narcotic pain medications, since your records show that you have filled a narcotic pain medication for 220 pills earlier this month. Please follow-up with Dr. Marx as scheduled. Return to the ED if you have chest pain, shortness of breath. Prescriptions: No Action acetaminophen [Tylenol Extra Strength] 500 MG tablet 500 mg PO Q4HP PRNQty: 0 Vitamins (PRENAVITE) 1 tab PO QDAY Qty: 0 cephalexin [Keflex] 500 MG capsule 500 mg PO BID 3 Days Qty: 0 0RF methocarbamol [Robaxin-750] 750 MG tablet 750 mg PO QIDP PRNQty: 40 0RF Referrals: Dung Campbell MD [Family Provider, Internal Medicine] Stand Alone Forms: Patient Portal/API ED Sign-out <Lidia Santoyo, - Last Filed: 04/26/25 09:55> Cosign ED Attending Bridget Attestation: I was immediately available in the department for consultation.
[2025-04-25] MEDS: ONDANSETRON 4 MG/2 ML INJ IV (12:14)
[2025-04-25] MEDS: SODIUM CHLORIDE 0.9% 1,000 ML 1000 ML IV (12:14)
--- NOTE | 2025-04-25 13:38 | CM.SWNOTE ---
ED NURSES AIDE Note Patient is 44 y/o female who presents to ED due to concern for MS flare up and reported pain. Patient went to [facility] ED twice yesterday for similar symptoms. NURSES AIDE receives consult due to concern for patient's need for new PCP, it is reported that patient was terminated from her PCP Dr. Campbell earlier this month. Patient has Medicaid and Medicare insurance. Patient has hx of MS, Type 2 diabetes and other comorbidities. NURSES AIDE enters room to meet with patient and present with patient is patient's mother. Patient presents as A/Ox4. Patient and mother endorse that they are uncertain if patient is terminated from the clinic because patient just saw PCP 3 weeks ago and they report he was unaware of the termination from clinic. Patient states that she missed two appts because her son was in the hospital. Patient endorses she is open to establishing care with new PCP with clinics. NURSES AIDE calls [facility], it is confirmed that patient was terminated from the clinic on 04/06/25, the day after she was seen by Dr. Capmbell. NURSES AIDE calls PCP clinics managed care manager Onna and schedules ED follow up with Dr. Marx for 05/18/25 at 9:45 AM check in. NURSES AIDE provides patient with information confirmation about former provider and about upcoming appt with new PCP and arrival time, she indicates agreement and understanding. Plan: Patient to d/c to home upon medical clearance, patient to f/u with new PCP on 05/08/25. KAITLIN George
[2025-04-25 14:38] VITALS: BP 123/73; PULSE 86; RESP 16; O2SAT 100
== END 2025-04-25 14:40 | disposition home or self-care (01) ==
PROVIDERS: Emergency Provider Student in an Organized Health Care Education/Training Program; Family Provider Internal Medicine; PCP Family Medicine
DX: G35.D Multiple sclerosis, unspecified (principal); M79.10 Myalgia, unspecified site
CPT/HCPCS: 96361; 96374; 96375; 96376; 99283; J1171; J2405; J7030

== ENCOUNTER 2025-04-30 10:57 | Emergency (ER) | payer MEDICARE, MEDICAID, SELFPAY ==
--- OUTSIDE RECORDS SUMMARY | 2025-04-30 01:45 | XMS_ITS | Continuity of Care Document ---
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 Name Role Phone HELADIO KWAN MD Primary Care Provider HELADIO KWAN MD Attending Provider HELADIO KWAN MD Referring Provider [phone] Pancho Skaggs MD Emergency Provider Fadi Miller DNP Emergency Provider Jeffy Campo MD Emergency Provider [phone] Syeda Choudhary MD Emergency Provider [phone] Haresh Duncan MD Emergency Provider [phone] Care Teams Patient Care Team Team Status: [...] April 24, 2025 End: April 24, 2025 Visit Care Team Team Status: Inactive Member Role/Relationship Status Dates HELADIO KWAN MD Primary Care Provider Active Start: April 24, 2025 End: April 24, 2025 Fadi Miller DNP Emergency Provider Active Sta rt: April 24, 2025 End: April 24, 2025 Visit Care Team Team Status: Inactive Member Role/Relationship Status Dates HELADIO KWAN MD Primary Care Provider Active Start: April 26, 2025 End: April 26, 2025 Jeffy Campo MD Emergency Provider Active Start: April 26, 2025 End: April 26, 2025 Visit Care Team Team Status: Inactive Member Role/Relationship Status Dates HELADIO KWAN MD Primary Care Provider Active Start: April 27, 2025 End: April 27, 2025 Syeda Choudhary MD Emergency Provider Active S tart: April 27, 2025 End: April 27, 2025 Visit Care Team Team Status: Inactive Member Role/Relationship Status Dates HELADIO KWAN MD Primary Care Provider Active Start: April 29, 2025 End: April 29, 2025 Haresh Duncan MD Emergency Provider Active Start: April 29, 2025 End: April 29, 2025 Patient Care Team Team Status: Inactive Member Role/Relationship Status Dates HELADIO KWAN MD Primary Care Provider Active Start: April 30, 2025 End: April 30, 2025 Pancho Skaggs MD Emergency Provider Active Start: April 30, 2025 End: April 30, 2025 Chief Complaint and Reason for Visit Chief Complaint Admit Date MS April 21, 2025 10:06am BACK PX, LEG PX April 24, 2025 7:12am CAN'T KEEP FOOD DOWN April 24, 2025 11:39am ABD PX/V April 26, 2025 1:26am BODY PX April 27, 2025 7:24am LOWER BACK PX, URINATION PX April 10:05am WHOLE BODY PX, N/D April 30, 2025 8:47am Allergies, Adverse Reactions, Alerts Allergen Type Severity Reaction Last Updated Verified Status diphenhydramine HCl * Allergy Moderate Respiratory De cember 2024 9:01am Yes Active Iodinated Contrast Media Allergy Mild Itching April 30, 2025 9:01am Yes Active morphine Adverse Reaction Unknown Itching April 30, 2025 9:01am Yes Active Social History Smoking Status Status Start Date End Date Date of Observa tion Never smoked tobacco (finding) January 23, 2024 11:42pm Observation Status Observation Response Date of Response Suicide Risk Category Screening complete Decembe r 2024 7:36am Suicide Risk Category Screening complete Decembe r 2024 11:48am Suicide Risk Category Screening complete Decembe r 2024 4:51am Suicide Risk Category Screening complete Decembe r 2024 7:27am Suicide Risk Category Screening complete Decembe r 2024 10:10am Suicide Risk Category Screening complete Decembe r 2024 8:58am Living arrangement At home April 11:35pm Living Situation With family December 30 10:04pm ETOH Use Liquor June 25, 018 10:37am ETOH Use None April 29, 2 025 10:16am Psychiatric Depression January 23, 2024 10:42pm Anxiety January 23, 2024 10:42pm Social History Notes undefined December 10:04pm Legal Sex Female Sex Assigned At Female 1980 Status Not April 30, 2025 Not April 29, 2 025 Not April 27, 2 025 Not April 26, 2 025 Not April 24, 2 025 Not April 24, 2 025 Family History Relationship Condition Age at [...] pain April 16, 2020 11:31pm Unknown Active Chronic pain April 26, 2025 6:41am Unknown A ctive Chronic pain April 27, 2025 7:58am Unknown A ctive Abnormal liver function tests November 16, 2018 [...] November 11, 2016 5:16pm Unknown Activ e Drug-seeking behavior April 30, 2025 9:27am Unkno wn Active Psoriasis June 09, 2019 3:00pm Unknown Ac [...] 29, 2023 5:23pm Unknown Resolved History of pancreatic cancer April 29, 2025 10:15 am Unknown Resolved History of multiple sclerosis May 29, 2023 5:23p m Unknown Resolved Medications Medication Status Dose Units Route Directions Qty Days Refills S tart Date Stop Date End Date Reason(s) Instructions Adherence Sertraline (Zoloft) 50 MG tablet Discont inued 200 TAB PO DAILY September 07, 2012 11:00p m Decem 2019 9:16a m Furosemide 20 MG tablet [...] PO Q6H as needed for Pain 30 September 07, 2012 11:00p m Augus t 2012 3:44a m Ondansetron 4 MG tablet,disi ntegrating Discont inued 4 MG PO Q6H as needed for Pain 10 September 07, 2012 11:00p m Septe mber 2012 7:41p m Doxycycline Hyclate 100 MG tablet Discont inued 100 MG PO TWICE A DAY September 19, 2012 11:00p m Augus t 2012 3:44a m Glatiramer (Copaxone) 20 MG syringe Discont inued 20 MG SQ DAILY December 18, 2012 11:00p m Febru deb 2013 2:53p m Sennosides (Senokot) 8.6 MG tablet Discont inued 8.6 MG PO TWICE A DAY as needed for Constipatio n Febobe r 2012 11:00p m Octob er 2013 [...] as needed for Nausea / Vomiting 10 August 26, 2013 11:00p m Novem damari [...] inued 40 MG PO DAILY 5 0 Octobe r 2013 11:00p m Novem damari 2013 3:55p m 2X 20 MG TABS. [...] Pain 15 0 October 03, 2015 2:54pm [facility] damari 2019 9:17a m Methadone 5 MG [...] Q6H as needed for Spasms 25 0 Septem 2017 11:00p m Octob er 2017 11:12 [...] as needed for muscle spasm 20 0 2017 5:24am Octob er 2017 11:12 am [...] GM TOP TWICE A DAY 3 0 Decemb er 2018 12:00a m Decem damari 2019 9:16a m Promethazin e (Promethega n) 25 MG suppository Discont inued 25 MG [place] Q6H as needed for Nausea / Vomiting [...] A DAY as needed for Itching 14 2019 12:00a m August 19, 2019 1:36p m Triamcinolo ne Acetonide 15 APPLIC/15 GM ointment Discont inued 1 GM TOP TWICE A DAY 3 0 2019 12:00a m Decem damari 2019 12:00 pm Oxycodone-A cetaminophe n (Percocet 5-325 Mg Tablet) 1 EACH tablet Discont inued 1 - 2 EACH PO Q6H as needed for pain 7 0 y 2019 12:00a m Dece damari 2019 9:17a m Azithromyci n 250 MG tablet Discont inued 1 TAB PO DAILY 4 0 2019 12:00a m August 19, 2019 1:36p m Start tomorrow, first dose given in the emergency department. Albuterol Sulfate (Ventolin Hfa) 200 PUFFS/18 GM HFA aerosol inhaler Discont inued 1 - 2 PUFFS INH EVERY 4 HOURS as needed for Shortness Of Air/Wheezin g 1 0 2019 12:00a m August 19, 2019 [...] 7 0 July 25, 2019 11:00p m Dece damari 2019 12:01 pm Oxycodone 5 MG tablet Discont inued 10 MG PO Q6H 14 0 November 12, 2019 Dece damari 2019 9:44p m pain Ondansetron 4 MG tablet,disi ntegrating Discont inued 4 MG TL Q6H as needed for Nausea / Vomiting 10 0 Novemb er 2019 12:00a m Dece damari 2019 9:16a m Metformin 500 MG tablet Active 1000 MG PO TWICE A DAY Dece mb er 2019 12:00a m Unknown Sertraline 50 MG tablet Active 200 MG PO DAILY Decemb er 2019 12:00a m Unknown Risankizuma b-Rzaa (Skyrizi) 150 MG/1.66 ML syringe kit Active 150 MG IJ .[id number] Decemb er 2019 12:00a m Unknown Oxycodone 5 MG tablet Discont inued 10 MG PO Q4H as needed for Pain Decemb er 2019 9:44pm Dece damari 2024 10:14 am Insulin Glargine (Lantus Solostar U-100 Insulin) 100 UNIT/ML insulin pen Active 16 UNIT SQ EVERY EVENING Decemb er 2019 12:00a m Unknown Potassium Chloride [...] 5 0 July 05, 2020 12:00a m Dece 2020 1:39p m 500 MG ON DAY 1, THEN 250 MG DAILY X 4 DAYS FOR A TOTAL OF 5 DAYS Hydromorpho ne 2 MG tablet Discont inued 2 MG PO Q4H as needed for chest pain 14 0 October 03, 20212022 2:22p m Azithromyci n 250 MG tablet Discont inued 250 MG PO DAILY 4 0 October 02, 2021 11:00p m Janua ry 2022 2:22p m Amoxicillin -Pot Clavulanate 1 TAB tablet Discont inued 1 TAB PO Q12H 20 0 October 02, 2021 11:00p m Mayua ry 2022 2:22p m Celecoxib (Celebrex) 200 MG capsule Discont inued 200 MG PO August 30, 2022 11:00p m Janua ry 2023 7:44p m Hydromorpho ne (Dilaudid) 4 MG tablet Discont inued 4 MG PO Q4H as needed for pain 15 0 y 2023 Augus t 2023 7:55p m Methadone 10 MG tablet Discont inued 1 TAB PO As Directed December 31, 2023 11:00p m Dece damari 2024 10:14 am METHADONE 10MG TABS #35 TAKE 1 TABLET BY MOUTH FIVE TIMES A DAY. -FILLED AND PICKED UP AT [place], [place] Ondansetron Hcl 4 mg tablet Active 4 MG PO Q8H as needed for nausea and vomiting 10 0 Decemb er 2024 12:00a m Chronic pain Other chronic pain Unknown Oxycodone 10 mg tablet Discont inued 10 MG PO Q4H as needed for pain 20 0 Decemb er 2024 Decem damari 2024 10:14 am Chronic pain Other chronic pain Ondansetron 4 mg tablet,disi ntegrating Active 4 MG PO Q6H as needed for nausea and vomiting 14 0 Decemb er 2024 12:00a m Vomiting Vomiting, unspecifie d Unknown Immunizations Immunization Event Date Not Given Reason Dose Number Hand Hose Cutter Lot Number Reason(s) Given Vaccine Information Statement (VIS) Detail Administration Location Diptheria-Tet anus-Pertussi s Ped 1980 Diptheria-Tet anus-Pertussi s Ped Decemb er 1982 Diptheria-Tet anus-Pertussi s Ped October 08, 1983 Diptheria-Tet anus-Pertussi s Ped December 30, 1984 Diptheria-Tet anus-Pertussi s Ped September 08, 1989 Measles-Mumps -Rubella October 15, 1983 Measles-Mumps -Rubella October 20, 1994 Measles-Mumps -Rubella Novemb er 2014 Measles-Mumps -Rubella Novemb er 2015 Tetanus-Dipth eria-Pertussi s Octobe r 2014 Tetanus-Dipth eria-Pertussi s Octobe r 2015 Procedures Procedure Date Performed Status CT Abdomen/Pelvis W April 29, 2025 1:57pm c ompleted Relevant Diagnostic Tests and/or Laboratory Data Laboratory Results Test Collection Date/Time Result Date/Time Result Interpretation Reference Range Result Comment Performing Site White Blood Count February 07, 2025 8:05am February 07, 2025 8:24am 6.3 10*3/uL 4.8-10.8 MAIN LAB [id number] [address] [facility] [address] White Blood Count April 24, 2025 1:08pm April 24, 2025 1:21pm 12.4 10*3/uL above high threshold 4.8-10.8 MAIN LAB [id number] [address] [facility] [address] White Blood Count April 29, 2025 10:45am April 29, 2025 10:50am 14.5 10*3/uL above high threshold 4.8-10.8 MAIN LAB [id number] [address] [facility] [address] Red Blood Count February 07, 2025 8:05am February 07, 2025 8:24am 4.20 10*6/uL 4.20-5.40 MAIN LAB [id number] [address] [facility] [address] Red Blood Count April 24, 2025 1:08pm April 24, 2025 1:21pm 4.60 10*6/uL 4.20-5.40 MAIN LAB [id number] [address] [facility] [address] Red Blood Count April 29, 2025 10:45am April 29, 2025 10:50am 4.36 10*6/uL 4.20-5.40 MAIN LAB [id number] [address] [facility] [address] Hemoglob in February 07, 2025 8:05am February 07, 2025 8:24am 10.6 g/dL below low threshold 12.0-16.0 MAIN LAB [id number] [address] [facility] [address] Hemoglob in April 24, 2025 1:08pm April 24, 2025 1:21pm 10.8 g/dL below low threshold 12.0-16.0 MAIN LAB [id number] [address] [facility] [address] Hemoglob in April 29, 2025 10:45am April 29, 2025 10:50am 10.4 g/dL below low threshold 12.0-16.0 MAIN LAB [id number] [address] [facility] [address] Hematocr it February 07, 2025 8:05am February 07, 2025 8:24am 33.0 % below low threshold 37.0-47.0 MAIN LAB [id number] [address] [facility] [address] Hematocr it April 24, 2025 1:08pm April 24, 2025 1:21pm 35.0 % below low threshold 37.0-47.0 MAIN LAB [id number] [address] [facility] [address] Hematocr it April 29, 2025 10:45am April 29, 2025 10:50am 33.8 % below low threshold 37.0-47.0 MAIN LAB [id number] [address] [facility] [address] Mean Corpuscu lar Volume February 07, 2025 8:05am February 07, 2025 8:24am 78.6 fL below low threshold 81.0-99.0 MAIN LAB [id number] [address] [facility] [address] Mean Corpuscu lar Volume April 24, 2025 1:08pm April 24, 2025 1:21pm 76.1 fL below low threshold 81.0-99.0 MAIN LAB [id number] [address] [facility] [address] Mean Corpuscu lar Volume April 29, 2025 10:45am April 29, 2025 10:50am 77.5 fL below low threshold 81.0-99.0 MAIN LAB [id number] [address] [facility] [address] Mean Corpuscu lar Hemoglob in February 07, 2025 8:05am February 07, 2025 8:24am 25.2 pg below low threshold 27.0-31.0 MAIN LAB [id number] [address] [facility] [address] Mean Corpuscu lar Hemoglob in April 24, 2025 1:08pm April 24, 2025 1:21pm 23.5 pg below low threshold 27.0-31.0 MAIN LAB [id number] [address] [facility] [address] Mean Corpuscu lar Hemoglob in April 29, 2025 10:45am April 29, 2025 10:50am 23.9 pg below low threshold 27.0-31.0 MAIN LAB [id number] [address] [facility] [address] Mean Corpuscu lar Hemoglob in Concent February 07, 2025 8:05am February 07, 2025 8:24am 32.1 g/dL 32.0-36.0 MAIN LAB [id number] [address] [facility] [address] Mean Corpuscu lar Hemoglob in Concent April 24, 2025 1:08pm April 24, 2025 1:21pm 30.9 g/dL below low threshold 32.0-36.0 MAIN LAB [id number] [address] [facility] [address] Mean Corpuscu lar Hemoglob in Concent April 29, 2025 10:45am April 29, 2025 10:50am 30.8 g/dL below low threshold 32.0-36.0 MAIN LAB [id number] [address] [facility] [address] Red Cell Distribu tion Width February 07, 2025 8:05am February 07, 2025 8:24am 14.9 % 12.0-15.0 MAIN LAB [id number] [address] [facility] [address] Red Cell Distribu tion Width April 24, 2025 1:08pm April 24, 2025 1:21pm 16.7 % above high threshold 12.0-15.0 MAIN LAB [id number] [address] [facility] [address] Red Cell Distribu tion Width April 29, 2025 10:45am April 29, 2025 10:50am 16.8 % above high threshold 12.0-15.0 MAIN LAB [id number] [address] [facility] [address] Platelet Count February 07, 2025 8:05am February 07, 2025 8:24am 232 10*3/uL 130-450 MAIN LAB [id number] [address] [facility] [address] Platelet Count April 24, 2025 1:08pm April 24, 2025 1:21pm 304 10*3/uL 130-450 MAIN LAB [id number] [address] [facility] [address] Platelet Count April 29, 2025 10:45am April 29, 2025 10:50am 302 10*3/uL 130-450 MAIN LAB [id number] [address] [facility] [address] Mean Platelet Volume February 07, 2025 8:05am February 07, 2025 8:24am 9.1 fL 7.9-10.8 MAIN LAB [id number] [address] [facility] [address] Mean Platelet Volume April 24, 2025 1:08pm April 24, 2025 1:21pm 9.2 fL 7.9-10.8 MAIN LAB [id number] [address] [facility] [address] Mean Platelet Volume April 29, 2025 10:45am April 29, 2025 10:50am 9.0 fL 7.9-10.8 MAIN LAB [id number] [address] [facility] [address] Neutroph ils # (Auto) February 07, 2025 8:05am February 07, 2025 8:24am 3.9 10*3/uL 1.5-6.6 MAIN LAB [id number] [address] [facility] [address] Neutroph ils # (Auto) April 24, 2025 1:08pm April 24, 2025 1:21pm 8.0 10*3/uL above high threshold 1.5-6.6 MAIN LAB [id number] [address] [facility] [address] Neutroph ils # (Auto) April 29, 2025 10:45am April 29, 2025 10:50am 11.1 10*3/uL above high threshold 1.5-6.6 MAIN LAB [id number] [address] [facility] [address] Lymphocy kelsey # (Auto) February 07, 2025 8:05am February 07, 2025 8:24am 1.8 10*3/uL 1.5-3.5 MAIN LAB [id number] [address] [facility] [address] Lymphocy kelsey # (Auto) April 24, 2025 1:08pm April 24, 2025 1:21pm 3.5 10*3/uL 1.5-3.5 MAIN LAB [id number] [address] [facility] [address] Lymphocy kelsey # (Auto) April 29, 2025 10:45am April 29, 2025 10:50am 2.3 10*3/uL 1.5-3.5 MAIN LAB [id number] [address] [facility] [address] Monocyte s # (Auto) February 07, 2025 8:05am February 07, 2025 8:24am 0.4 10*3/uL 0.0-1.0 MAIN LAB [id number] [address] [facility] [address] Monocyte s # (Auto) April 24, 2025 1:08pm April 24, 2025 1:21pm 0.8 10*3/uL 0.0-1.0 MAIN LAB [id number] [address] [facility] [address] Monocyte s # (Auto) April 29, 2025 10:45am April 29, 2025 10:50am 0.8 10*3/uL 0.0-1.0 MAIN LAB [id number] [address] [facility] [address] Eosinoph ils # (Auto) February 07, 2025 8:05am February 07, 2025 8:24am 0.1 10*3/uL 0.0-0.7 MAIN LAB [id number] [address] [facility] [address] Eosinoph ils # (Auto) April 24, 2025 1:08pm April 24, 2025 1:21pm 0.0 10*3/uL 0.0-0.7 MAIN LAB [id number] [address] [facility] [address] Eosinoph ils # (Auto) April 29, 2025 10:45am April 29, 2025 10:50am 0.1 10*3/uL 0.0-0.7 MAIN LAB [id number] [address] [facility] [address] Basophil s # (Auto) February 07, 2025 8:05am February 07, 2025 8:24am 0.0 10*3/uL 0.0-0.1 MAIN LAB [id number] [address] [facility] [address] Basophil s # (Auto) April 24, 2025 1:08pm April 24, 2025 1:21pm 0.1 10*3/uL 0.0-0.1 MAIN LAB [id number] [address] [facility] [address] Basophil s # (Auto) April 29, 2025 10:45am April 29, 2025 10:50am 0.0 10*3/uL 0.0-0.1 MAIN LAB [id number] [address] [facility] [address] Nucleate d Red Blood Cells % February 07, 2025 8:05am February 07, 2025 8:24am 0.0 /100{WBC} MAIN LAB [id number] [address] [facility] [address] Nucleate d Red Blood Cells % April 24, 2025 1:08pm April 24, 2025 1:21pm 0.2 /100{WBC} MAIN LAB [id number] [address] [facility] [address] Nucleate d Red Blood Cells % April 29, 2025 10:45am April 29, 2025 10:50am 0.2 /100{WBC} MAIN LAB [id number] [address] [facility] [address] Nucleate d RBC Absolute Count (auto) February 07, 2025 8:05am February 07, 2025 8:24am 0.00 10*3/uL MAIN LAB [id number] [address] [facility] [address] Nucleate d RBC Absolute Count (auto) April 24, 2025 1:08pm April 24, 2025 1:21pm 0.03 10*3/uL MAIN LAB [id number] [address] [facility] [address] Nucleate d RBC Absolute Count (auto) April 29, 2025 10:45am April 29, 2025 10:50am 0.03 10*3/uL MAIN LAB [id number] [address] [facility] [address] Urine Color April 29, 2025 10:20am April 29, 2025 10:44am YELLOW MAIN LAB [id number] [address] [facility] [address] Urine Clarity April 29, 2025 10:20am April 29, 2025 10:44am CLEAR CLEAR MAIN LAB [id number] [address] [facility] [address] Urine Leukocyt e Esterase April 29, 2025 10:20am April 29, 2025 10:44am NEGATIVE NEGATIVE MAIN LAB [id number] [address] [facility] [address] Urine Nitrite April 29, 2025 10:20am April 29, 2025 10:44am NEGATIVE NEGATIVE MAIN LAB [id number] [address] [facility] [address] Urine Urobilin ogen April 29, 2025 10:20am April 29, 2025 10:44am 0.2 (NORMAL) {EhrlichU} /dL NORMAL MAIN LAB [id number] [address] [facility] [address] Urine Protein April 29, 2025 10:20am April 29, 2025 10:44am NEGATIVE mg/dL NEGATIVE MAIN LAB [id number] [address] [facility] [address] Urine pH April 29, 2025 10:20am April 29, 2025 10:44am 5.5 ph 5.0-7.5 MAIN LAB [id number] [address] [facility] [address] Urine Occult Blood April 29, 2025 10:20am April 29, 2025 10:44am NEGATIVE NEGATIVE MAIN LAB [id number] [address] [facility] [address] Urine Specific [place] April 29, 2025 10:20am April 29, 2025 10:44am <=1.005 1.002-1.03 0 MAIN LAB [id number] [address] [facility] [address] Urine Ketones April 29, 2025 10:20am April 29, 2025 10:44am NEGATIVE mg/dL NEGATIVE MAIN LAB [id number] [address] [facility] [address] Urine Bilirubi n April 29, 2025 10:20am April 29, 2025 10:44am NEGATIVE NEGATIVE Bilirubin can be influenced by color interferen ce. Please correlate positive results with clinical presentati on MAIN LAB [id number] [address] [facility] [address] Urine Glucose (UA) April 29, 2025 10:20am April 29, 2025 10:44am NEGATIVE mg/dL NEGATIVE MAIN LAB [id number] [address] [facility] [address] Urine Microsco pic Review April 29, 2025 10:20am April 29, 2025 10:44am NOT INDICATED MAIN LAB [id number] [address] [facility] [address] Urine Culture Comments April 29, 2025 10:20am April 29, 2025 10:44am NOT INDICATED MAIN LAB [id number] [address] [facility] [address] Urine HCG, Qualitat george April 29, 2025 10:20am April 29, 2025 10:44am NEGATIVE INTERPRETI VE INFORMATIO N Urine hCG:Non-pr egnant females: NegativePr egnant females: PositiveIn some cases the level of hCG may be below the sensitivit y of the test. Additional ly, a very dilute urine specimen, may not contain representa tive levels of hCG. If is still suspected, follow up testing on a first morning urine specimen or serum hCG testing is recommende d. MAIN LAB [id number] [address] [facility] [address] Sodium Level February 07, 2025 8:05am February 07, 2025 8:35am 137 mmol/L 135-145 MAIN LAB [id number] [address] [facility] [address] Sodium Level April 24, 2025 1:08pm April 24, 2025 1:31pm 137 mmol/L 135-145 MAIN LAB [id number] [address] [facility] [address] Sodium Level April 29, 2025 10:45am April 29, 2025 11:18am 137 mmol/L 135-145 MAIN LAB [id number] [address] [facility] [address] Potass[place] m Level February 07, 2025 8:05am February 07, 2025 8:35am 4.0 mmol/L 3.5-4.5 As of November 2022 testing method has changed, this may include reference ranges. MAIN LAB [id number] [address] [facility] [address] [place] m Level April 24, 2025 1:08pm April 24, 2025 1:31pm 3.7 mmol/L 3.5-4.5 As of November 2022 testing method has changed, this may include reference ranges. MAIN LAB [id number] [address] [facility] [address] [place] m Level April 29, 2025 10:45am April 29, 2025 11:18am 3.5 mmol/L 3.5-4.5 As of November 2022 testing method has changed, this may include reference ranges. MAIN LAB [id number] [address] [facility] [address] Chloride Level February 07, 2025 8:05am February 07, 2025 8:35am 105 mmol/L 101-111 As of November 2022 testing method has changed, this may include reference ranges. MAIN LAB [id number] [address] [facility] [address] Chloride Level April 24, 2025 1:08pm April 24, 2025 1:31pm 102 mmol/L 101-111 As of November 2022 testing method has changed, this may include reference ranges. MAIN LAB [id number] [address] [facility] [address] Chloride Level April 29, 2025 10:45am April 29, 2025 11:18am 104 mmol/L 101-111 As of November 2022 testing method has changed, this may include reference ranges. MAIN LAB [id number] [address] [facility] [address] Carbon Dioxide Level February 07, 2025 8:05am February 07, 2025 8:35am 27 mmol/L 21-32 As of November 2022 testing method has changed, this may include reference ranges. MAIN LAB [id number] [address] [facility] [address] Carbon Dioxide Level April 24, 2025 1:08pm April 24, 2025 1:31pm 26 mmol/L 21-32 As of November 2022 testing method has changed, this may include reference ranges. MAIN LAB [id number] [address] [facility] [address] Carbon Dioxide Level April 29, 2025 10:45am April 29, 2025 11:18am 24 mmol/L 21-32 As of November 2022 testing method has changed, this may include reference ranges. MAIN LAB [id number] [address] [facility] [address] Anion Gap February 07, 2025 8:05am February 07, 2025 8:35am 5.0 below low threshold 6-13 MAIN LAB [id number] [address] [facility] [address] Anion Gap April 24, 2025 1:08pm April 24, 2025 1:31pm 9.0 6-13 MAIN LAB [id number] [address] [facility] [address] Anion Gap April 29, 2025 10:45am April 29, 2025 11:18am 9.0 6-13 MAIN LAB [id number] [address] [facility] [address] Blood Urea Nitrogen February 07, 2025 8:05am February 07, 2025 8:35am 15 mg/dL 6-20 As of November 2022 testing method has changed, this may include reference ranges. MAIN LAB [id number] [address] [facility] [address] Blood Urea Nitrogen April 24, 2025 1:08pm April 24, 2025 1:31pm 13 mg/dL 6-20 As of November 2022 testing method has changed, this may include reference ranges. [facility] [id number] [address] [facility] [address] Blood Urea Nitrogen April 29, 2025 10:45am April 29, 2025 11:18am 14 mg/dL 6-20 As of November 2022 testing method has changed, this may include reference ranges. MAIN LAB [id number] [address] [facility] [address] Creatini ne February 07, 2025 8:05am February 07, 2025 8:35am 0.7 mg/dL 0.6-1.3 As of November 2022 testing method has changed, this may include reference ranges. MAIN LAB [id number] [address] [facility] [address] Creatini ne April 24, 2025 1:08pm April 24, 2025 1:31pm 0.6 mg/dL 0.6-1.3 As of November 2022 testing method has changed, this may include reference ranges. MAIN LAB [id number] [address] [facility] [address] Creatini ne April 29, 2025 10:45am April 29, 2025 11:18am 0.5 mg/dL below low threshold 0.6-1.3 As of November 2022 testing method has changed, this may include reference ranges. MAIN LAB [id number] [address] [facility] [address] Estimate d GFR (MDRD) February 07, 2025 8:05am February 07, 2025 8:35am 92 >89 The IDMS-trace able MDRD Study Equation has been validated extensivel y in and population s between the ages of 18 and 70 with impaired kidney function (eGFR < 60 mL/min/1.7 3m2) and has shown good performanc e for patients with all common causes of kidney disease. Although this equation has not been validated for patients older than 70, an MDRD-deriv ed eGFR may still be a useful tool for providers caring for patients older than 70.Referen jesus: http://www .nkdep.nih .gov/lab-e valuation/ gfr/creati nine-stand ardization , last updated July 2011. MAIN LAB [id number] [address] [facility] [address] Estimate d GFR (MDRD) April 24, 2025 1:08pm April 24, 2025 1:31pm 110 >89 The IDMS-trace able MDRD Study Equation has been validated extensivel y in and population s between the ages of 18 and 70 with impaired kidney function (eGFR < 60 mL/min/1.7 3m2) and has shown good performanc e for patients with all common causes of kidney disease. Although this equation has not been validated for patients older than 70, an MDRD-deriv ed eGFR may still be a useful tool for providers caring for patients older than 70.Referen jesus: http://www .nkdep.nih .gov/lab-e valuation/ gfr/creati nine-stand ardization , last updated July 2011. MAIN LAB [id number] [address] [facility] [address] Estimate d GFR (MDRD) April 29, 2025 10:45am April 29, 2025 11:18am 135 >89 The IDMS-trace able MDRD Study Equation has been validated extensivel y in and population s between the ages of 18 and 70 with impaired kidney function (eGFR < 60 mL/min/1.7 3m2) and has shown good performanc e for patients with all common causes of kidney disease. Although this equation has not been validated for patients older than 70, an MDRD-deriv ed eGFR may still be a useful tool for providers caring for patients older than 70.[facility]: http://www .[facility].nih .gov/lab-e valuation/ gfr/creati nine-stand ardization , last updated July 2011. MAIN LAB [id number] [address] [facility] [address] Glucose Level February 07, 2025 8:05am February 07, 2025 8:35am 117 mg/dL above high threshold 74-104 As of November 2022 testing method has changed, this may include reference ranges. MAIN LAB [id number] [address] [facility] [address] Glucose Level April 24, 2025 1:08pm April 24, 2025 1:31pm 149 mg/dL above high threshold 74-104 As of November 2022 testing method has changed, this may include reference ranges. MAIN LAB [id number] [address] [facility] [address] Glucose Level April 29, 2025 10:45am April 29, 2025 11:18am 111 mg/dL above high threshold 74-104 As of November 2022 testing method has changed, this may include reference ranges. MAIN LAB [id number] [address] [facility] [address] Calcium Level February 07, 2025 8:05am February 07, 2025 8:35am 8.9 mg/dL 8.5-10.3 As of November 2022 testing method has changed, this may include reference ranges. MAIN LAB [id number] [address] [facility] [address] Calcium Level April 24, 2025 1:08pm April 24, 2025 1:31pm 9.3 mg/dL 8.5-10.3 As of November 2022 testing method has changed, this may include reference ranges. MAIN LAB [id number] [address] [facility] [address] Calcium Level April 29, 2025 10:45am April 29, 2025 11:18am 8.8 mg/dL 8.5-10.3 As of November 2022 testing method has changed, this may include reference ranges. MAIN LAB [id number] [address] [facility] [address] Total Bilirubi n February 07, 2025 8:05am February 07, 2025 8:35am 0.7 mg/dL 0.2-1.0 As of November 2022 testing method has changed, this may include reference ranges. MAIN LAB [id number] [address] [facility] [address] Total Bilirubi n April 24, 2025 1:08pm April 24, 2025 1:31pm 1.2 mg/dL above high threshold 0.2-1.0 As of November 2022 testing method has changed, this may include reference ranges. MAIN LAB [id number] [address] [facility] [address] Total Bilirubi n April 29, 2025 10:45am April 29, 2025 11:18am 1.2 mg/dL above high threshold 0.2-1.0 As of November 2022 testing method has changed, this may include reference ranges. MAIN LAB [id number] [address] [facility] [address] Aspartat e Amino Transf (AST/SGO T) February 07, 2025 8:05am February 07, 2025 8:35am 15 [iU]/L 10-42 As of November 2022 testing method has changed, this may include reference ranges. MAIN LAB [id number] [address] [facility] [address] Aspartat e Amino Transf (AST/SGO T) April 24, 2025 1:08pm April 24, 2025 1:31pm 12 [iU]/L 10-42 As of November 2022 testing method has changed, this may include reference ranges. MAIN LAB [id number] [address] [facility] [address] Aspartat e Amino Transf (AST/SGO T) April 29, 2025 10:45am April 29, 2025 11:18am 10 [iU]/L 10-42 As of November 2022 testing method has changed, this may include reference ranges. MAIN LAB [id number] [address] [facility] [address] Alanine Aminotra nsferase (ALT/SGP T) February 07, 2025 8:05am February 07, 2025 8:35am 11 [iU]/L 10-60 As of November 2022 testing method has changed, this may include reference ranges. MAIN LAB [id number] [address] [facility] [address] Alanine Aminotra nsferase (ALT/SGP T) April 24, 2025 1:08pm April 24, 2025 1:31pm 11 [iU]/L 10-60 As of November 2022 testing method has changed, this may include reference ranges. MAIN LAB [id number] [address] [facility] [address] Alanine Aminotra nsferase (ALT/SGP T) April 29, 2025 10:45am April 29, 2025 11:18am 7 [iU]/L below low threshold 10-60 As of November 2022 testing method has changed, this may include reference ranges. MAIN LAB [id number] [address] [facility] [address] Alkaline Phosphat ase February 07, 2025 8:05am February 07, 2025 8:35am 64 [iU]/L 42-121 As of November 2022 testing method has changed, this may include reference ranges. MAIN LAB [id number] [address] [facility] [address] Alkaline Phosphat ase April 24, 2025 1:08pm April 24, 2025 1:31pm 82 [iU]/L 42-121 As of November 2022 testing method has changed, this may include reference ranges. MAIN LAB [id number] [address] [facility] [address] Alkaline Phosphat ase April 29, 2025 10:45am April 29, 2025 11:18am 77 [iU]/L 42-121 As of November 2022 testing method has changed, this may include reference ranges. MAIN LAB [id number] [address] [facility] [address] Total Protein February 07, 2025 8:05am February 07, 2025 8:35am 7.3 g/dL 6.4-8.9 As of November 2022 testing method has changed, this may include reference ranges. MAIN LAB [id number] [address] [facility] [address] Total Protein April 24, 2025 1:08pm April 24, 2025 1:31pm 8.0 g/dL 6.4-8.9 As of November 2022 testing method has changed, this may include reference ranges. MAIN LAB [id number] [address] [facility] [address] Total Protein April 29, 2025 10:45am April 29, 2025 11:18am 7.4 g/dL 6.4-8.9 As of November 2022 testing method has changed, this may include reference ranges. MAIN LAB [id number] [address] [facility] [address] Albumin February 07, 2025 8:05am February 07, 2025 8:35am 4.2 g/dL 3.2-5.5 As of November 2022 testing method has changed, this may include reference ranges. MAIN LAB [id number] [address] [facility] [address] Albumin April 24, 2025 1:08pm April 24, 2025 1:31pm 4.5 g/dL 3.2-5.5 As of November 2022 testing method has changed, this may include reference ranges. MAIN LAB [id number] [address] [facility] [address] Albumin April 29, 2025 10:45am April 29, 2025 11:18am 4.0 g/dL 3.2-5.5 As of November 2022 testing method has changed, this may include reference ranges. MAIN LAB [id number] [address] [facility] [address] Globulin February 07, 2025 8:05am February 07, 2025 8:35am 3.1 g/dL 2.1-4.2 MAIN LAB [id number] [address] [facility] [address] Globulin April 24, 2025 1:08pm April 24, 2025 1:31pm 3.5 g/dL 2.1-4.2 MAIN LAB [id number] [address] [facility] [address] Globulin April 29, 2025 10:45am April 29, 2025 11:18am 3.4 g/dL 2.1-4.2 MAIN LAB [id number] [address] [facility] [address] Albumin/ Globulin Ratio February 07, 2025 8:05am February 07, 2025 8:35am 1.4 1.0-2.2 MAIN LAB [id number] [address] [facility] [address] Albumin/ Globulin Ratio April 24, 2025 1:08pm April 24, 2025 1:31pm 1.3 1.0-2.2 MAIN LAB [id number] [address] [facility] [address] Albumin/ Globulin Ratio April 29, 2025 10:45am April 29, 2025 11:18am 1.2 1.0-2.2 MAIN LAB [id number] [address] [facility] [address] Lipase April 24, 2025 1:08pm April 24, 2025 1:54pm < 10 [iU]/L below low threshold 11-82 As of November 2022 testing method has changed, this may include reference ranges. MAIN LAB [id number] [address] [facility] [address] Lipase April 29, 2025 10:45am April 29, 2025 11:18am < 10 [iU]/L below low threshold 11-82 As of November 2022 testing method has changed, this may include reference ranges. MAIN LAB [id number] [address] [facility] [address] Miscella neous Test February 07, 2025 8:05am February 13, 2025 8:09am COMMENT . Test Ordered: [id number] ROGERS Virus DNA,PCR (Whole Blood)ROGERS Virus DNA,PCR (Whole Blood) Negative BN Reference Range: NegativeNo JCV DNA detectedTh is test was developed and its performanc e characteri sticsdeter mined by [employer]. It has not been cleared or approvedby the Food and Drug Administra tion. The FDA hasdetermi christopher that such clearance or approval is notnecessa ry.Perform ed at: - [facility] [id number] ab Director: Denise Mora MD, Phone: [phone] Performed at: - [facility] [id number] ab Director: Gt Vu MD, Phone: [phone] [facility] Diagnostic Imaging Reports Author Bony Oviedo [facility] Authored April 29, 2025 3:19pm Report Dictated Date/Time Dictated By Status Radiology Report April 29, 2025 3:19pm Bony kirby MD completed PT NAME: MARIA ALEJANDRA SCHMID MR #: [id number] REG ER/ED AGE: 44 CI DT/TM: 04/29/25 PCP: Heladio Kwan : 1980 ATT: SEX: F ORD: Haresh Duncan MD EXAM: [id number] CT/ABPEW ([id number]) PROCEDURE: CT Abdomen/Pelvis W INDICATIONS: diffuse abd pain, vomiting CONTRAST: OMNI 300 100 ML TECHNIQUE: After the administration of intravenous contrast, a CT scan of the abdomen and pelvis was performed. Images were recorded and evaluated at appropriate window settings. Reformats: coronal and sagittal. For radiation dose reduction, the following was used: automated exposure control, adjustment of mA and/or kV according to patient size. COMPARISON: 05/30/2020, 04/07/2022. FINDINGS: Image quality: Diagnostic. Lower chest: 5 mm juxtapleural nodule in the right lower lobe. Liver: Presumed 1.9 cm hemangioma in segment 7, similar to prior. Gallbladder: Surgically absent. Biliary tree: No intrahepatic or extrahepatic dilation, accounting for a post- cholecystectomy state. Pneumobilia, usually indicating a postcholecystectomy state. Spleen: No splenomegaly. Pancreas: Prior Whipple. No significant pancreatic ductal dilation. Adrenals: No adrenal nodule. Kidneys and ureters: No hydronephrosis. No renal cystic lesion which requires follow up. No solid mass. Stomach, bowel and peritoneum: No gastric or small bowel dilation. No abnormal wall thickening. No pathologic free fluid. Prior Whipple. Lymph nodes: No central or retroperitoneal adenopathy. Vessels: No infrarenal aortic aneurysm. Patent portal vein. PELVIS Reproductive organs: Unremarkable. Bladder: No abnormal wall thickening. Pelvic lymph nodes: No pelvic adenopathy by size criteria. Bones: No aggressive osseous abnormality. Other: No significant ventral or inguinal hernia. IMPRESSION: No acute abnormality. Prior Whipple. Ancillary findings as above. Reviewed by: Bony Oviedo MD on 04/29/2025 2:23 PM AKST Approved by: Bony Oviedo MD on 04/29/2025 2:23 PM AKST Station ID: [id number] Report Electronically Signed by Bony Oviedo MD 04/29/25 1519 04/29/25 1523 cc: Heladio Kwan; Haresh Duncan MD Vital Signs Vital Reading Result Reference Range Collection Date/Time Height 65 [in_i] March 07, 024 10:58am Weight 78.70 kg March 24, 2025 9:22am Body Temperature 36.6 Teresa 36.5-37.9 April 212024 10:11am Heart Rate 91 /min 60-100 April 21, 2025 10:11am Respiratory rate 16 /min -April 212024 10:11am Oxygen saturation by Pulse oximetry 100 % 92-100 April 21, 2025 10:11am BP Systolic 146 mm[Hg] 90-130 April 21, 2025 10:11am BP Diastolic 93 mm[Hg] 60-90 April 21, 2025 10:11am BMI (Body Mass Index) 29.3 kg/m2 2023 12:49am Height 65 [in_i] April 24, 2025 7:36am Weight 76.65 kg April 24, 2025 7:36am Body Temperature 36.6 Teresa 36.5-37.9 April 242024 7:57am Heart Rate 88 /min 60-100 April 24, 2025 7:57am Respiratory rate 18 /min -April 242024 7:57am Oxygen saturation by Pulse oximetry 98 % 92-100 April 24, 2025 7:57am BP Systolic 146 mm[Hg] 90-130 April 24, 2025 7:57am BP Diastolic 88 mm[Hg] 60-90 April 24, 2025 7:57am BMI (Body Mass Index) 28.1 kg/m2 [facility] 2024 7:36am Height 65 [in_i] April 24, [...] 1:40pm BMI (Body Mass Index) 27.6 kg/m2 [facility] 2024 11:48am Height 65 [in_i] April 26, 2025 4:51am Weight 76.06 kg April 26, 2025 4:51am Body Temperature 36.6 Teresa 36.5-37.9 April 262024 4:51am Heart Rate 92 /min 60-100 April 26, 2025 4:51am Respiratory rate 16 /min -April 262024 4:51am Oxygen saturation by Pulse oximetry 95 % 92-100 April 26, 2025 5:00am BP Systolic 122 mm[Hg] 90-130 April 26, 2025 5:00am BP Diastolic 69 mm[Hg] 60-90 April 26, 2025 5:00am BMI (Body Mass Index) 27.8 kg/m2 [facility] 2024 4:51am Height 65 [in_i] April 27, 2025 7:27am Weight 77.70 kg April 27, 2025 7:27am Body Temperature 36.6 Teresa 36.5-37.9 April 272024 8:09am Heart Rate 86 /min 60-100 April 27, 2025 8:35am Respiratory rate 16 /min -April 272024 8:35am Oxygen saturation by Pulse oximetry 96 % 92-100 April 27, 2025 8:35am BP Systolic 128 mm[Hg] 90-130 April 27, 2025 8:35am BP Diastolic 100 mm[Hg] 60-90 April 27, 2025 8:35am BMI (Body Mass Index) 28.5 kg/m2 [facility] 2024 7:27am Height 65 [in_i] April 29, 2025 10:10am Weight 75.74 kg April 29, 2025 10:10am Body Temperature 36.9 Teresa 36.5-37.9 April 292024 10:10am Heart Rate 98 /min 60-100 April 29, 2025 4:25pm Respiratory rate 20 /min -April 292024 4:25pm Oxygen saturation by Pulse oximetry 96 % 92-100 April 29, 2025 4:25pm BP Systolic 143 mm[Hg] 90-130 April 29, 2025 4:25pm BP Diastolic 82 mm[Hg] 60-90 April 29, 2025 4:25pm BMI (Body Mass Index) 27.8 kg/m2 [facility] 2024 10:10am Height 65 [in_i] April 30, 2025 8:58am Weight 75.74 kg April 30, 2025 8:58am Body Temperature 36.4 Teresa 36.5-37.9 April 302024 8:58am Heart Rate 117 /min 60-100 April 30, 2025 8:58am Respiratory rate 20 /min -April 302024 8:58am Oxygen saturation by Pulse oximetry 95 % 92-100 April 30, 2025 8:58am BP Systolic 167 mm[Hg] 90-130 April 30, 2025 8:58am BP Diastolic 112 mm[Hg] 60-90 April 30, 2025 8:58am BMI (Body Mass Index) 27.8 kg/m2 [facility] 2024 8:58am Advance Directives Advance Directive Response Recorded Date/ Time Advance Directives on file? No Decu 2023 11:10pm Advance Directives No March 8:21pm Advance Directives Information Provided No April 26, 2025 1:55am Living Will No April 02, 2 014 8:21pm Power of Bumper And Painter No April 02, 2014 8:21pm POLST Status Full Code January 23, 2024 10:42pm Advance Directives On File No Novem 2013 8:21pm Insurance Providers Guarantor MARIA ALEJANDRA SCHMID Address [address] [facility] [address] Contact Info. Home Phone: Coverage Status Update:2024 Payer Group Member ID Coverage Type Subscriber Relationship to Subscriber Effective Date Expiration Date Deleted 1500 Insurances [employer]/QMB [id number] null MARIA ALEJANDRA SCHMID Id: [id number] Self Deleted Clinic Insur [id number] null MARIA ALEJANDRA SCHMID Id: [id number] Self Medicaid Id: [id number] null MARIA ALEJANDRA SCHMID Id: [id number] [address] [facility] [address] Home Phone: Self 2022 MEDICAID AMBULANCE DUAL COMPLETE Id: [id number] null MARIA ALEJANDRA SCHMID Id: [id number] [facility] [address] Home Phone: Self Encounters Encounter Location(s) Arrival/Admit Date Discharge/Departure [...] (routine discharge) Departed Emergency -Emergency Department April 26, 2025 1:26am April 26, 2025 6:44am Discharged to home care or self care (routine discharge) Departed Emergency -Emergency Department April 27, 2025 7:24am April 27, 2025 8:35am Discharged to home care or self care (routine discharge) Departed Emergency -Emergency Department April 29, 2025 10:05am April 29, 2025 5:03pm Discharged to home care or self care (routine discharge) Departed Emergency -Emergency Department April 30, 2025 8:47am April 30, 2025 9:37am Discharged to home care or self care (routine discharge) Functional Status Observation Response Date Recorded Activity Walks occasionally January 02, 2024 6:55am Mental Status Observation Response Date Recorded Neurological WDL Yes April 24, 2025 7:39am Neurological WDL No April 24, 2025 12:36pm Oriented To Person April 24, 2 025 12:36pm Place April 24, 2 025 12:36pm Time April 24, 2 025 12:36pm Neurological WDL No April 26, 2025 1:53am Oriented To Person April 26, 2 025 1:53am Place April 26, 2 025 1:53am Time April 26, 2 025 1:53am Situation April 26, 2 025 1:53am Neurological WDL Yes April 27, 2025 7:31am Neurological WDL Yes April 29, 2025 10:27am Cognitive/Mental Status Assessments Plan of Treatment Future [...] ORDER April 10, 2025 1:42pm 7 Days UTI signs/symptoms April 29, 2025 10:19am D ecember 2024 12:00am Future Medications Future medication information is unavailable Patient Instructions Instruction Admit Date ED Chronic Pain April 24, 2025 7:12am Managing Chronic Pain April 24 11:39am ED Chronic Pain April 26, 2025 1:26am ED Chronic Pain April 27, 2025 7:24am ED Abdominal Pain Female Non-Specific Ab dominal Pain April 29, 2025 10:05am Hospital Discharge Instructions Additional Instructions Patient left without discharge instructions
[2025-04-30 11:12] VITALS: BP 147/85; PULSE 98; RESP 18; TEMP 36.4; O2SAT 100; BMI 27.8
--- NOTE | 2025-04-30 12:06 | ED.RECABL ---
HPI - Recheck/Abnormal Lab/Rx General Chief Complaint: Recheck/Abnormal Lab/Rx Stated Complaint: Bad MS flareup Time Seen by Provider: 04/30/25 11:25 Source: patient Mode of arrival: Ambulatory History of Present Illness HPI narrative: 44-year-old female medical history of multiple sclerosis, pancreatic cancer status post Whipple procedure, type 2 diabetic, seen multiple times at would be ER and most recently on April 25 for chronic pain for which patient was discharged from the PCP office for missing 2 PCP appointments according to the patient for which the last prescription was filled by Dr. Dung tagn on 04/09/2025 for 224 tablets of oxycodone 10 mg. Patient has a upcoming appointment with Dr. Марина Page mid May and is in significant pain head to toe. Patient admits taking more pain medicines then as prescribed also having gone through 224 tablets apparently in 2 weeks. Other than what is stated 14 pt ROS is negative. Related Data Home Medications ?Medication ?Instructions ?Recorded ?Confirmed Vitamins (PRENAVITE) 1 tab PO QDAY #0 tabs 02/26/16 acetaminophen 500 mg tablet 500 mg PO Q4HP PRN ##0 02/26/16 (Tylenol Extra Strength) Previous Rx's ?Medication ?Instructions ?Recorded cephalexin 500 mg capsule (Keflex) 500 mg PO BID 3 days #0 caps 02/26/16 methocarbamol 750 mg tablet 750 mg PO QIDP PRN #40 tabs 08/05/16 (Robaxin-750) Allergies Allergy/AdvReac Type Severity Reaction Status Date / Time morphine (MORPHINE) AdvReac Severe n/v Verified 04/30/25 11:12 ,difficulty breathing diphenhydramine (From AdvReac Intermediate anxious Verified 04/30/25 11:12 BENADRYL) Review of Systems Review of Systems ROS Unobtainable: All systems reviewed & are unremarkable except as noted in HPI and below Patient History Social History Smoking Status: Former smoker Smoking Status: Former smoker Exam Narrative Exam Narrative: GENERAL: [44] year old patient appears stated age. Well-developed patient, in mild distress. HEAD: Atraumatic. Normocephalic. EYES: Pupils equal round and reactive. Extraocular motions intact. No scleral icterus. No injection or drainage. NECK: Trachea midline. Non tender CARDIOVASCULAR: Regular rate and rhythm without murmurs, gallops, or rubs. RESPIRATORY: Clear to auscultation. Breath sounds equal bilaterally. No wheezes, rales, or rhonchi. EXTREMITIES: No edema or joint tenderness. BACK: Nontender without deformity or crepitance. No flank tenderness. NEURO: AOx3. SKIN: No rash or erythema of visible areas Initial Vital Signs Initial Vital Signs: Vital Signs Temperature 97.5 F L 04/30/25 11:12 Pulse Rate 98 H 04/30/25 11:12 Respiratory Rate 18 04/30/25 11:12 Blood Pressure 147/85 H 04/30/25 11:12 Pulse Oximetry 100 04/30/25 11:12 Oxygen Delivery Method Room Air 04/30/25 11:12 Course Vital Signs Vital signs: Vital Signs - 8 hr 04/30/25 11:12 Temperature 97.5 F L Pulse Rate 98 H Respiratory Rate 18 Blood Pressure 147/85 H Pulse Oximetry 100 Oxygen Delivery Method Room Air MDM - Recheck/Abnormal Lab/Rx MDM Narrative Medical decision making narrative: All lab work, vital signs, nurse triage note, medication list previous ER visits, and all imaging studies reviewed. Patient given 1 [place] here. Patient will follow up with Dr. Марина Page. Discharge Plan Departure Patient Disposition: Home Clinical Impression: Multiple sclerosis, Chronic pain Instructions: DI for Chronic Pain -- Adult Activity Restrictions/Additional Instructions: Return with new or worsening signs. Follow up with to get established with PCP. Prescriptions: No Action acetaminophen [Tylenol Extra Strength] 500 MG tablet 500 mg PO Q4HP PRNQty: 0 Vitamins (PRENAVITE) 1 tab PO QDAY Qty: 0 cephalexin [Keflex] 500 MG capsule 500 mg PO BID 3 Days Qty: 0 0RF methocarbamol [Robaxin-750] 750 MG tablet 750 mg PO QIDP PRNQty: 40 0RF Referrals: Марина Marx DO [Primary Care Provider, Family Practice] Stand Alone Forms: Patient Portal/API
== END 2025-04-30 12:36 | disposition home or self-care (01) ==
PROVIDERS: Emergency Provider Family Medicine; Family Provider Internal Medicine; PCP Family Medicine
DX: G35.D Multiple sclerosis, unspecified (principal); G89.29 Other chronic pain
CPT/HCPCS: 99283